=== PATIENT | female | born 1990 | race Asian ===

== ENCOUNTER 2016-09-14 23:59 | Outpatient (CLI) | payer MEDICAID ==
[2016-09-15 00:39] LABS: APPEARANCE,URINE CLEAR; BILIRUBIN,URINE NEGATIVE (NEGATIVE); GLUCOSE, URINE 50 mg/dL (NEGATIVE); KETONES,URINE NEGATIVE (NEGATIVE); LEUKOCYTE ESTERASE,URINE NEGATIVE (NEGATIVE); NITRITE,URINE NEGATIVE (NEGATIVE); PROTEIN,URINE NEGATIVE (NEGATIVE); URINE SPECIFIC GRAVITY 1.014; UROBILINOGEN,URINE NEGATIVE mg/dL (<2.0)
[2016-09-15 00:54] LABS: URINE BARBITURATES SCREEN NEGATIVE; URINE METHADONE SCREEN NEGATIVE; URINE OPIATES LOW NEGATIVE; URINE PHENCYCLIDINE SCREEN NEGATIVE
--- NOTE | 2016-09-15 00:54 | Non Stress Test Report ---
Non Stress Test Datetime Report Generated by CPN: 09/15/2016 00:54 DEMOGRAPHIC Test Number: 1 EGA NST: 39.2 INDICATION Indication for Study: Other Indication for Study (NST) Other: labor check MONITORING Monitor Explained: Monitor Explained; Test Explained; Patient Verbalized Understanding Time on Monitor: 09/15/2016 00:10 Time off Monitor: 09/15/2016 00:51 NST Duration: 41 NST INTERVENTIONS NST Interventions: PO Hydration; Other NST Interventions Other: popcicle Physician Notified NST: Dr Rodriguez BABY A: [id number] BABY A Movement : Present Contraction Frequency : occasional FHR Baseline : 130 Accelerations : 15X15 Decelerations : None Variability : Moderate 6-25bpm NST Review: Meets Criteria for Reactive NST NST Review and Verified By : Keya Poon RN NST Results: Reactive NST REPORT Report Trigger: Send Report
[2016-09-15 02:40] LABS: CHLAM PCR NOT DETECTED (NOT DETECT)
--- NOTE | 2016-09-15 04:45 | L&D Admission Assessment ---
LD ADM ASMT Datetime Report Generated by CPN: 09/15/2016 04:45 PATIENT ASSESSMENT Assessment Type: Triage (09/15/2016 00:19:Libia Duke) WEIGHT Weight (lb): 156 (09/15/2016 00:11:QS system process) Weight (kg): 70.9 (09/15/2016 00:11:QS system process) PAIN Pain Scale: 1 (09/15/2016 00:19:Libia Duke) Pain Presence: Intermittent (09/15/2016 00:19:Libia Duke) Pain Type: Cramping (09/15/2016 00:19:Libia Duke) Pain Location: Perineum (09/15/2016 00:19:Libia Duke) Pain Goal: 0 (09/15/2016 00:19:Libia Duke) CONTRACTIONS Frequency (min): occasional (09/15/2016 00:50:Libia Duke) Quality: Mild (09/15/2016 00:50:Libia Duke) Resting Tone [place]: Relaxed (09/15/2016 00:50:Libia Duke) VAGINAL EXAM Dilatation (cm): fingertip (09/15/2016 01:00:Libia Duke) Effacement (%): 50 (09/15/2016 01:00:Libia Duke) Station: -2 (09/15/2016 01:00:Libia Duke) NEURO Level of Consciousness: Fully Conscious (09/15/2016 00:19:Libia Duke) DTR's/Clonus: DTRs 2+; No Clonus (09/15/2016 00:19:Libia Duke) Headache: Denies (09/15/2016 00:19:Libia Duke) Dizziness: No (09/15/2016 00:19:Libia Duke) Blurred Vision: No (09/15/2016 00:19:Libia Duke) Extremity Numbness/Tingling : None (09/15/2016 00:19:Libia Duke) Extremity Movement: Full Range of Motion (09/15/2016 00:19:Libia Duke) CARDIOVASCULAR Heart Rhythm: Regular (09/15/2016 00:19:Libia Duke) Nailbeds: [place] (09/15/2016 00:19:Libia Duke) Capillary Refill: Less than 3 Seconds (09/15/2016 00:19:Libia Duke) Lower Extremities Edema: None (09/15/2016 00:19:Libia Duke) Lower Extremities Edema Degree: None (09/15/2016 00:19:Libia Duke) Upper Extremities Edema: None (09/15/2016 00:19:Libia Duke) Upper Extremities Edema Degree: None (09/15/2016 00:19:Libia Duke) Facial Edema: None (09/15/2016 00:19:Libia Duke) DVT RISK ASSESSMENT DVT Risk Age: Age less than 41 years (09/15/2016 00:19:Libia Duke) DVT Risk BMI: BMI<31 (09/15/2016 00:19:Libia Duke) DVT Risk Surgery: None Applicable (09/15/2016 00:19:Libia Duke) DVT Risk Other: Women Only- or (<1 month) (09/15/2016 00:19:Libia Duke) DVT Risk Total: 1 (09/15/2016 00:19:QS system process) DVT Risk Text: Low Risk (<10%) No specific measures, early ambulation (09/15/2016 00:19:QS system process) RESPIRATORY Respiratory Effort: Unlabored (09/15/2016 00:19:Libia Duke) Breath Sounds, Left: Clear and Equal (09/15/2016 00:19:Libia Duke) Breath Sounds, Right: Clear and Equal (09/15/2016 00:19:Libia Duke) Cough Productivity: None (09/15/2016 00:19:Libia Duke) GASTROINTESTINAL Nausea/Vomiting: Denies (09/15/2016 00:19:Libia Duke) Bowel Sounds: Normoactive (09/15/2016 00:19:Libia Duke) RUQ Epigastric Pain: Denies (09/15/2016 00:19:Libia Duke) Bowel Patterns: Soft, Formed Stool (09/15/2016 00:19:Libia Duke) Hemorrhoids: None (09/15/2016 00:19:Libia Duke) GENITOURINARY Vaginal Bleeding: Scant (09/15/2016 00:19:Libia Duke) Vaginal Discharge Amount: None (09/15/2016 00:19:Libia Duke) INTEGUMENTARY Skin Color: Normal for Race (09/15/2016 00:19:Libia Duke) Skin Temperature: Warm (09/15/2016 00:19:Libia Duke) Skin Moisture: Dry (09/15/2016 00:19:Libia Duke) KT SKIN ASSESSMENT Kt Scale Sensory Perception: No Impairment- Responds to verbal commands. Has no sensory deficit which would limit ability to feel or voice pain or discomfort (09/15/2016 00:19:Libia Duke) Kt Scale Moisture: Rarely Moist- Skin is usually dry. Linen only requires changing at routine intervals (09/15/2016 00:19:Libia Duke) Kt Scale Activity: Walks Frequently- Walks outside the room at least twice a day and inside room at least every 2 hours during the day. (09/15/2016 00:19:Libia Duke) Kt Scale Mobility: No Limitations- Makes major and frequent changes in position without assistance (09/15/2016 00:19:Libia Duke) Kt Scale Nutrition: Excellent- Eats most of every meal. Never refuses a meal. Usually eats a total of 4 or more servings of meat and dairy products. Occasionally eats between meals. Does not require supplementation (09/15/2016 00:19:Libianathan Duke) Kt Scale Friction and Shear: No Apparent Problem- Moves in bed and in chair independently and has sufficient muscle strength to lift up completely during move. Maintains good position in bed or chair at all times (09/15/2016 00:19:Libia Duke) Kt Scale Total: 23 (09/15/2016 00:19:QS system process) Kt Scale Risk: No Risk of Pressure Ulcer Noted at this Time (09/15/2016 00:19:QS system process) SUPPORT Family Support: Significant Other supportive, at bedside frequently; Family supportive (09/15/2016 00:19:Libia Duke) Emotional State: Calm/Relaxed (09/15/2016 00:19:Libia Duke) SAFETY Call Plaza Within Reach: Yes (09/15/2016 00:19:Libia Duke) Side Rails Up: Yes (09/15/2016 00:19:Libia Duke) Bed Wheels Locked: Yes (09/15/2016 00:19:Libia Duke) Arm Bands Present: Yes (09/15/2016 00:19:Libia Duke) Isolation: [place] (09/15/2016 00:19:Libia Duke) FALL SCREEN Fall Risk History of Falling: (0) No (09/15/2016 00:19:Libia Duke) Fall Risk Secondary Diagnosis: (0) No (09/15/2016 00:19:Libia Duke) Fall Risk Ambulatory Aid: (0) None/Bedrest/Wheelchair/Nurse Assist (09/15/2016 00:19:Libia Srikanth) Fall Risk IV Therapy: (0) No (09/15/2016 00:19:Libia Duke) Fall Risk Gait: (0) Normal/Bedrest/Immobile (09/15/2016 00:19:Libia Duke) Fall Risk Mental Status: (0) Oriented to Own Ability (09/15/2016 00:19:Libia Duke) Fall Risk Score: 0 (09/15/2016 00:19:QS system process) Fall Risk Score Definition: No Risk: No action required (09/15/2016 00:19:QS system process) RECENT TRAVEL/INFECTIOUS DISEASE Recent Exp Communicable Disease: No (09/15/2016 00:19:Libia Duke) Cough or Fever: No (09/15/2016 00:19:Libia Duke) Foreign Travel Past 10 Days: No (09/15/2016 00:19:Libia Duke) Open Wounds or Sores: No (09/15/2016 00:19:Libia Duke) Prior Antibiotic Resistance Tx: No (09/15/2016 00:19:Libia Duke) BABY A FHR Baseline Rate (bpm) Baby A: 130 (09/15/2016 00:50:Libia Duke) Variability Baby A: Moderate 6-25 bpm (09/15/2016 00:50:Libia Duke) Accelerations Baby A: 15X15 (09/15/2016 00:50:Libia Duke) Decelerations Baby A: None (09/15/2016 00:50:Libia Duke)
--- NOTE | 2016-09-15 04:45 | L&D Flow Sheet ---
LD Flowsheet Datetime Report Generated by CPN: 09/15/2016 04:45 Datetime: 09/15/2016 01:14 Patient Care Comments: patient ambulated off the unit in stbale condition. (Libia Duke) Datetime: 09/15/2016 01:10 Teaching Comments: discharge instructions reviewed and handout given. The patient verbalized understanding of the instructions and no further querstions at this time. (Libia Duke) Datetime: 09/15/2016 01:09 Communication Provider Notified (Name): Dr Rodriguez notified of the patient changes with some mild spotting, occasioanl contractions that the patient denies feeling. Okay to discharge home and follow up in the office this week. (Libia Duke) Datetime: 09/15/2016 01:00 Vaginal Exam Dilatation (cm): fingertip (Libia Duke) Effacement (%): 50 (Libia Duke) Station: -2 (Libia Duke) Exam by: David Duke Rn (Libia Duke) Vaginal Exam Comments: there was some minor spotting on the pad but no blood on the glove after cervical check. (Libia Duke) Datetime: 09/15/2016 00:50 Respirations: 18 (Libia Duke) Uterine Activity Monitor Mode: External; Palpation (Libia Duke) Monitor Interventions for UA: [place] Adjusted (Libia Duke) Frequency (min): occasional (Libia Duke) Quality: Mild (Libia Duke) Resting Tone (Palpate): Relaxed (Libia Duke) Assessment A Monitor Mode: External US (Libia Duke) Monitor Interventions for FHR: Ultrasound Adjusted (Libia Duke) FHR Baseline Rate : 130 (Libia Duke) Variability: Moderate 6-25 bpm (Libia Duke) Accelerations: 15X15 (Libia Duke) Decelerations: None (Libia Duke) Patient Care Patient Position/Activity: Left Lateral (Libia Duke) Datetime: 09/15/2016 00:46 Vital Signs NBP Sys/Nery/Mean (mmHg): 102 (QS system process) : 64 (QS system process) : 77 (QS system process) Pulse: 80 (QS system process) Datetime: 09/15/2016 00:38 Communication Provider Notified (Name): Dr Rodriguez notified of the patient 39.2 presents with vaginal bleeding. The baby is reactive on the monitor with an occasional contraction that the patient denies feeling them. orders recieved to discharge the patient home if no bleeding noted and no more problems (Libia Duke) Datetime: 09/15/2016 00:32 I/O Interventions: Popsicle; Clear Liquids Given (Libia Duke) Datetime: 09/15/2016 00:28 Patient Care Comments: pad placed in vaginal area to watch for bleeding (Libia Duke) Datetime: 09/15/2016 00:19 Pain Pain Scale: 1 (Libia Duke) Pain Presence: Intermittent (Libia Duke) Pain Type: Cramping (Libia Duke) Pain Location: Perineum (Libia Duke) Pain Goal: 0 (Libia Duke) Vaginal Bleeding: Scant (Libia Duke) Maternal Assessment Level of Consciousness: Fully Conscious (Libia Duke) DTR's/Clonus: DTRs 2+; No Clonus (Libia Duke) Headache: Denies (Libia Duke) Breath Sounds, Left: Clear and Equal (Libia Duke) Breath Sounds, Right: Clear and Equal (Libia Duke) Nausea/Vomiting: Denies (Libia Duke) RUQ Epigastric Pain: Denies (Libia Duke) Patient Care Patient Position/Activity: Left Lateral (Libia Duke) Teaching Instructional Method: Verbal (Libia Duke) Plan of Care: Plan of Care Discussed (Libia Duke) Unit Routine: [place] to Room; Call Plaza; Bed; Monitoring (Libia Duke) Datetime: 09/15/2016 00:16 Vital Signs NBP Sys/Nery/Mean (mmHg): 108 (QS system process) : 66 (QS system process) : 79 (QS system process) Pulse: 93 (QS system process) Datetime: 09/15/2016 00:06 Patient Care Comments: patient to the unit for labor check (Libia Duke)
--- NOTE | 2016-09-15 04:45 | L&D General Admission ---
General Admit Datetime Report Generated by CPN: 09/15/2016 04:45 INFORMATION Patient Age: 26 (09/14/2016 23:59:QS system process) EDC: 09/20/2016 00:00 (09/15/2016 00:04:Libia Duke) : 1 (09/15/2016 00:04:Libia Duke) Para: 0 (09/15/2016 00:04:Libia Duke) CARE Primary Automatic Packer Operator: [facility] (09/15/2016 00:04:Libia Duke) Height (in): 65 (09/15/2016 00:11:QS system process) ALLERGIES Medication Allergy: No (09/15/2016 00:04:Libia Duke) Medication Allergies: No Known Drug Allergies (09/15/2016) (09/15/2016 00:11:QS system process) Latex Allergy: No Latex Allergies (09/15/2016 00:04:Libia Duke) Food Allergies: none (09/15/2016 00:04:Libia Duke) Environmental Allergies: none (09/15/2016 00:04:Libia Duke) COMMUNICATION Primary Language: Bengali (09/15/2016 00:04:Libia Duke) Medical Tx Preferred Language: Somali (09/15/2016 00:04:Libia Duke) DEMOGRAPHICS Address: [address] [place] [id number] (09/14/2016 23:59:QS system process) Zipcode: [address] (09/14/2016 23:59:QS system process) Home (09/14/2016 23:59:QS system process) SSN: [id number] (09/14/2016 23:59:QS system process) Next of Kin Name: TROY RAMON (09/14/2016 23:59:QS system process) Next of Kin (09/14/2016 23:59:QS system process) Next of Kin Relationship: SPO (09/14/2016 23:59:QS system process) Date of : 1990 (09/14/2016 23:59:QS system process) Marital Status: (09/14/2016 23:59:QS system process) Sex: Female (09/14/2016 23:59:QS system process) Race: (09/14/2016 23:59:QS system process) Ethnicity: Non- or (09/14/2016 23:59:QS system process) Tenriism: None (09/14/2016 23:59:QS system process) DRUG AND ALCOHOL USE Alcohol: No (09/15/2016 00:04:Libia Srikanth) Cigarettes: Never Smoker. [id number] (09/15/2016 00:04:Libia Duke) Marijuana: No (09/15/2016 00:04:Libia Duke) Cocaine: No (09/15/2016 00:04:Libia Duke) Other Illicit Drugs: No (09/15/2016 00:04:Libia Duke) VACCINE HISTORY Influenza Vaccine: No (09/15/2016 00:04:Libia Duke) Pneumococcal Vaccine: No (09/15/2016 00:04:Libia Duke) Tetanus Vaccine: No (09/15/2016 00:04:Libia Duke) Tdap Date: 2016 (09/15/2016 00:04:Libia Duke) Hepatitis B Vaccine: No (09/15/2016 00:04:Libia Duke) Qa Manager: [facility] (09/15/2016 00:04:Libia Duke) Feeding Preference: Both (09/15/2016 00:04:Libia Duke) Circumcision: Yes (09/15/2016 00:04:Libia Duke) Classes Attended: Yes (09/15/2016 00:04:Libia Duke) Tubal Ligation: No (09/15/2016 00:04:Libia Duke) Tubal Authorization Signed: N/A (09/15/2016 00:04:Libia Duke) Consent: N/A (09/15/2016 00:04:Libia Duke) Consent Signed: N/A (09/15/2016 00:04:Libia Duke) Pain Management Plans: Natural; Epidural (09/15/2016 00:04:Libia Duke) Plans for Labor and Delivery: None (09/15/2016 00:04:Libia Duke) Support Person: Troy- (09/15/2016 00:04:Libia Duke) Support Person Relationship: (09/15/2016 00:04:Libia Duke) Cultural/Spritual Practice: N/A (09/15/2016 00:04:Libia Duke) Spir/Cult Dietary Needs: N/A (09/15/2016 00:04:Libia Duke) LIVING SITUATION/DISCHARGE PLAN Living Arrangements: House (09/15/2016 00:04:Libia Duke) Adequate Access to:: Electric; Heat; Refrigeration; Plumbing/Running water; Phone; Transportation (09/15/2016 00:04:Libia Duke) WIC Program: Yes (09/15/2016 00:04:Libia Duke) Discharge Hebrew Cantor Person: ever (09/15/2016 00:04:Libia Dkue) Person to Help after Discharge: ever (09/15/2016 00:04:Libia Duke) Currently Using Commun Resources: Yes (09/15/2016 00:04:Libia Duke) Specify Current Resource Used: medicaid (09/15/2016 00:04:Libia Duke) OB/PREVIOUS HISTORY Previous Procedures: None (09/15/2016 00:04:Libia Duke) Current Procedures: Ultrasound; NST (09/15/2016 00:04:Libia Duke) History of Previous : No (09/15/2016 00:04:Libia Duke) History of Gestational Diabetes: No (09/15/2016 00:04:Libia Duke) History of PIH: No (09/15/2016 00:04:Libia Duke) History of Incompetent Cervix: No (09/15/2016 00:04:Libia Duke) History of Placenta Previa/Abrup: No (09/15/2016 00:04:Libia Duke) History of Macrosomia: No (09/15/2016 00:04:Libia Duke) History of IUGR: No (09/15/2016 00:04:Libia Duke) History of Hemorrhage: No (09/15/2016 00:04:Libia Duke) History of Loss/Stillborn: No (09/15/2016 00:04:Libia Duke) History of : No (09/15/2016 00:04:Libia Duke) History of D (Rh) Sensitization: No (09/15/2016 00:04:Libia Duke) History Recurrent Loss/Stillborn: No (09/15/2016 00:04:Libia Duke) History Depression/PP Depression: No (09/15/2016 00:04:Libia Duke) History of Uterine Anomaly/ALISE: No (09/15/2016 00:04:Libia Duke) History of Infertility: No (09/15/2016 00:04:Libia Duke) History of ART Treatment: No (09/15/2016 00:04:Libia Duke) History of ALISE: No (09/15/2016 00:04:Libia Duke) Comments Obstetrical History: G1-current (09/15/2016 00:04:Libia Duke) MEDICAL HISTORY Med Hx Diabetes: No (09/15/2016 00:04:Libia Duke) Med Hx Hypertension: No (09/15/2016 00:04:Libia Duke) Med Hx Heart Disease: No (09/15/2016 00:04:Libia Duke) Med Hx Autoimmune Disorder: No (09/15/2016 00:04:Libia Duke) Med Hx Kidney Disease/UTI: No (09/15/2016 00:04:Libia Duke) Med Hx Neurologic/Epilepsy: No (09/15/2016 00:04:Libia Duke) Med Hx Psychiatric Disorders: No (09/15/2016 00:04:Libia Duke) Med Hx Hepatitis/Liver Disease: No (09/15/2016 00:04:Libia Duke) Med Hx Varicosities/Phlebitis: No (09/15/2016 00:04:Libia Duke) Med Hx Thyroid Dysfunction: No (09/15/2016 00:04:Libia Duke) Med Hx Trauma/Violence: No (09/15/2016 00:04:Libia Duke) Med Hx Blood Transfusion: No (09/15/2016 00:04:Libia Duke) Med Hx Pulmonary (Asthma,TB): No (09/15/2016 00:04:Libia Duke) Med Hx Breast: No (09/15/2016 00:04:Libia Duke) Med Hx TRANSPORT MANAGER Surgery: No (09/15/2016 00:04:Libia Duke) Med Hx Hospitalization/Surgery: No (09/15/2016 00:04:Libia Duke) Med Hx Anesthetic Complications: No (09/15/2016 00:04:Libia Duke) Med Hx Abnormal Pap Smear: No (09/15/2016 00:04:Libia Duke) Other Medical Diseases: No (09/15/2016 00:04:Libia Duke) Med Hx Significant Family Hx: No (09/15/2016 00:04:Libia Duke) INFECTIOUS HISTORY Inf Hx Gonorrhea: No (09/15/2016 00:04:Libia Duke) Inf Hx Chlamydia: No (09/15/2016 00:04:Libia Duke) Inf Hx Syphilis: No (09/15/2016 00:04:Libia Duke) Inf Hx HIV/AIDS: No (09/15/2016 00:04:Libia Duke) Inf Hx Human Papilloma Virus: No (09/15/2016 00:04:Libia Duke) Inf Hx Pt/Partner Genital Herpes: No (09/15/2016 00:04:Libia Duke) Inf Hx Tuberculosis/Exposure: No (09/15/2016 00:04:Libia Duke) Inf Hx Hepatitis B,C: No (09/15/2016 00:04:Libia Duke) Inf Hx Rash or Viral Illness: No (09/15/2016 00:04:Libia Duke) GENETIC HISTORY Gen Hx Age >=35 at FINN: No (09/15/2016 00:04:Lbiia Duke) Gen Hx Thalassemia: No (09/15/2016 00:04:Libia Duke) Gen Hx Congenital Heart Defect: No (09/15/2016 00:04:Libia Duke) Gen Hx Neural Tube Defect: No (09/15/2016 00:04:Libia Duke) Gen Hx Down's Syndrome: No (09/15/2016 00:04:Libia Duke) Gen Hx Kenji-Sachs: No (09/15/2016 00:04:Libia Duke) Gen Hx Yumiko: No (09/15/2016 00:04:Libia Duke) Gen Hx Familial Dysautonomia: No (09/15/2016 00:04:Libia Duke) Gen Hx Sickle Cell Disease/Trait: No (09/15/2016 00:04:Libia Duke) Gen Hx Hemophilia/Blood Disorder: No (09/15/2016 00:04:Libia Duke) Gen Hx Muscular Dystrophy: No (09/15/2016 00:04:Libia Duke) Gen Hx Cystic Fibrosis: No (09/15/2016 00:04:Libia Duke) Gen Hx [place] Chorea: No (09/15/2016 00:04:Libia Duke) Gen Hx Mental Retardation/Autism: No (09/15/2016 00:04:Libia Duke) Gen Hx Tested for Fragile X: No (09/15/2016 00:04:Libia Duke) Gen Hx Other Inher/Chromosomal: No (09/15/2016 00:04:Libia Duke) Gen Hx Maternal Metabolic DO: No (09/15/2016 00:04:Libia Duke) Gen Hx Pt Father or FOB Defect: No (09/15/2016 00:04:Libia Duke) Gen Hx Other Genetic History: No (09/15/2016 00:04:Libia Duke) Gen Hx Drugs/Meds since LMP: No (09/15/2016 00:04:Libia Duke)
--- NOTE | 2016-09-15 04:45 | L&D Discharge Summary ---
OB Discharge Summary Datetime Report Generated by CPN: 09/15/2016 04:45 DISCHARGE DIAGNOSIS Diagnosis/Symptoms: False Labor Parity: 0 DIET/ACTIVITY/RESTRICTIONS Diet: Regular Activity: Normal Activity TEACHING/INSTRUCTIONS/REFERRALS Instructions Given To: patient Instructions Understood: Patient Verbalized Understanding; Support Person Verbalized Understanding Referrals: None Educational Materials- Other: labor signs DISCHARGE INFORMATION Discharge Date/Time: 09/15/2016 00:52 Discharged To: Home Discharge Provider Name: Dr Rodriguez Accompanied By: family Discharge Method: Ambulatory Condition: Stable FOLLOW UP INFORMATION Follow Up With: [facility] Follow Up On: 1-2 Days Follow Up Phone Number: [facility] -
--- NOTE | 2016-09-15 04:45 | L&D Current Admission ---
Current Admit Datetime Report Generated by CPN: 09/15/2016 04:45 ADMISSION INFORMATION Chief Complaint: Vaginal Bleeding (09/15/2016 00:19:Libia Duke)
--- NOTE | 2016-09-15 04:45 | Antepartum Discharge Summary ---
Antepartum DC Datetime Report Generated by CPN: 09/15/2016 04:45 DIET/ACTIVITY/RESTRICTIONS Diet: Regular (09/15/2016 00:51:Libia Duke) Activity: Normal Activity (09/15/2016 00:51:Libia Duke) TEACHING/INSTRUCTIONS/REFERRALS Instructions Given To: patient (09/15/2016 00:51:Libia Duke) Instructions Understood: Patient Verbalized Understanding; Support Person Verbalized Understanding (09/15/2016 00:51:Libia Duke) Referrals: None (09/15/2016 00:51:Libia Duke) Educational Materials- Other: labor signs (09/15/2016 00:51:Libia Duke) DISCHARGE INFORMATION Discharge Date/Time: 09/15/2016 00:52 (09/15/2016 00:51:Libia Duke) Discharged To: Home (09/15/2016 00:51:Libia Duke) Discharge Provider Name: Dr Rodriguez (09/15/2016 00:51:Libia Duke) Accompanied By: family (09/15/2016 00:51:Libia Duke) Discharge Method: Ambulatory (09/15/2016 00:51:Libia Duke) Condition: Stable (09/15/2016 00:51:Libia Duke) FOLLOW UP INFORMATION Follow Up With: [facility] (09/15/2016 00:51:Libia Duke) Follow Up On: 1-2 Days (09/15/2016 00:51:Libia Duke) Follow Up Phone Number: [facility] - (09/15/2016 00:51:Libia Duke)
== END 2016-09-15 01:14 | disposition home or self-care (01) ==
LOC: LC 23:59
PROVIDERS: ATTEND Obstetrics & Gynecology
PROC: 4A1HXCZ Monitoring of Products of Conception, Cardiac Rate, External Approach (ICD-10-PCS; principal; 2016-09-14)
DX: O47.1 False labor at or after 37 completed weeks of gestation (principal); Z3A.39 39 weeks gestation of pregnancy
CPT/HCPCS: 59025; 80307; 81005; 87491; 87591

== ENCOUNTER 2016-09-18 17:05 | Inpatient (IN) | payer MEDICAID ==
[2016-09-18 17:53] LABS: ABSOLUTE LYMPHOCYTES (AUTO) 1.2 10^3/uL (0.5-4.7); ABSOLUTE MONOCYTES (AUTO) 0.6 10^3/uL (0.1-1.4); ABSOLUTE NEUT (AUTO) 11.1 10^3/uL (1.7-8.2); BASOPHILS % (AUTO) 0.1 % (0-2); EOSINOPHILS % (AUTO) 0.1 % (0-6); HEMATOCRIT 39.1 % (36.0-47.0); HEMOGLOBIN 13.5 g/dL (12.0-15.5); HGB HCT DIFFERENCE 1.4; LYMPHOCYTES % (AUTO) 9.6 % (13-45); MEAN CORPUSCULAR HEMOGLOBIN 30.5 pg (27.0-33.4); MEAN CORPUSCULAR HGB CONC 34.4 g/dL (32.0-36.0); MEAN CORPUSCULAR VOLUME 89 fl (80-97); MONOCYTES % (AUTO) 4.7 % (3-13); RED BLOOD COUNT 4.41 10^6/uL (3.72-5.28); RED CELL DISTRIBUTION WIDTH 13.9 % (11.5-14.0); SEGMENTED NEUTROPHILS % (AUTO) 85.5 % (42-78)
[2016-09-18 17:55] LABS: APPEARANCE,URINE CLOUDY; BILIRUBIN,URINE NEGATIVE (NEGATIVE); GLUCOSE, URINE NEGATIVE (NEGATIVE); KETONES,URINE 80 mg/dL (NEGATIVE); LEUKOCYTE ESTERASE,URINE MODERATE (NEGATIVE); NITRITE,URINE NEGATIVE (NEGATIVE); PROTEIN,URINE 100 mg/dL (NEGATIVE); UROBILINOGEN,URINE NEGATIVE mg/dL (<2.0)
--- NOTE | 2016-09-18 18:00 | L&D Flow Sheet ---
LD Flowsheet Datetime Report Generated by CPN: 09/18/2016 18:00 Datetime: 09/18/2016 17:36 NBP Sys/Nery/Mean (mmHg): 115 (QS system process) : 67 (QS system process) : 84 (QS system process) Pulse: 77 (QS system process) LaborFlag: OB Triage (QS system process)
[2016-09-18 18:26] LABS: URINE BARBITURATES SCREEN NEGATIVE; URINE METHADONE SCREEN NEGATIVE; URINE OPIATES LOW NEGATIVE; URINE PHENCYCLIDINE SCREEN NEGATIVE
[2016-09-18] MEDS ORDERED: FENTANYL/BUPIVACAINE/NS/PF 0 MCG/0 ML RTUINJ EPI ONE (19:08)
[2016-09-18] MEDS ORDERED: EPHEDRINE SULFATE INJ 50 MG/1 ML AMPULE ONE (19:08)
[2016-09-18] MEDS ORDERED: LIDOCAINE 1% INJ-PF (10 MG/ML) 30 ML SDV ONE (19:09)
[2016-09-18] MEDS ORDERED: MISOPROSTOL 0.2 MG TABLET ONE (19:09)
[2016-09-18] MEDS ORDERED: OXYTOCIN/NORMAL SALINE 20 UNIT/1,000 ML RTUINJ ONE (19:09)
[2016-09-18] MEDS ORDERED: BUPIVACAINE HCL 0.25 % INJ/PF (2.5 MG/1 ML) 30 ML VIAL ONE (19:09)
--- NOTE | 2016-09-18 20:00 | L&D Flow Sheet ---
LD Flowsheet Datetime Report Generated by CPN: 09/18/2016 20:00 Datetime: 09/18/2016 19:36 NBP Sys/Nery/Mean (mmHg): 132 (QS system process) : 100 (QS system process) : 112 (QS system process) Pulse: 110 (QS system process) LaborFlag: Labor (QS system process) Datetime: 09/18/2016 19:30 Stage of : Labor (Yuan Claire RN) Respirations: 22 (Yuan Claire RN) Monitor Mode: External; Palpation (Yuan Claire RN) Monitor Mode: External (Yuan Claire RN) Frequency (min): 1.5-2.5 (Yuan Claire RN) Quality: Moderate to Strong (Yuan Claire RN) Duration (sec): 55-70 (Yuan Claire RN) Resting Tone (Palpate): Relaxed (Yuan Claire RN) Monitor Mode: External US (Yuan Claire RN) FHR Baseline Rate : 130 (Yuan Claire RN) FHR Baseline Changes: No Baseline Change (Yuan Claire RN) Variability: Moderate 6-25 bpm (Yuan Claire RN) Accelerations: 15X15 (Yuan Claire RN) Decelerations: None (Yuan Claire RN) Comfort Measures: Coaching (Yuan Claire RN) Pushing: Coached on Pushing; Urge to Push (Yuan Claire RN) Pushing Position: Pushing with Contractions; Pushing Lithotomy (Yuan Claire RN) Pushing Progress: Descent with Pushing (Yuan Claire RN) Communication: RN at Bedside; RN Reviewed Strip; Provider at Bedside (Yuan Claire RN) LaborFlag: Labor (QS system process) Datetime: 09/18/2016 19:27 Pushing: Coached on Pushing; Urge to Push (Yuan Claire RN) Pushing Position: Pushing with Contractions; Pushing Lithotomy (Yuan Claire RN) Pushing Progress: Ineffective Pushing (Yuan Claire RN) Datetime: 09/18/2016 19:24 Stage of : Labor (Yuan Claire RN) Communication: RN at Bedside; RN Reviewed Strip; Provider at Bedside (Yuan Claire RN) Communication Comments: DR RODRIGUEZ @ BS (Yuan Claire RN) Datetime: 09/18/2016 19:15 Monitor Mode: External; Palpation (Marilyn Camp, RNC) Monitor Interventions for UA: [place] Adjusted (Marilyn Camp, RNC) Frequency (min): 1-3 (Marilyn Camp, RNC) Quality: Moderate to Strong (Marilyn Camp, RNC) Duration (sec): 60-80 (Marilyn Camp, RNC) Duration Criteria: Less than Two 120 Second Contractions (Marilyn Camp, RNC) Pattern: Normal: <= 5 Contractions in 10 Minutes (Marilyn Camp, RNC) Resting Tone (Palpate): Relaxed (Marilyn Camp, RNC) Monitor Mode: External US; Auscultation (Marilyn Camp, RNC) Monitor Interventions for FHR: Ultrasound Adjusted (Marilyn Camp, RNC) FHR Baseline Rate : 135 (Marilyn Camp, RNC) FHR Baseline Changes: No Baseline Change (Marilyn Camp, RNC) Variability: Moderate 6-25 bpm (Marilyn Camp, RNC) Accelerations: 15X15 (Marilyn Camp, RNC) Decelerations: None (Marilyn Camp, RNC) Datetime: 09/18/2016 19:10 Communication Comments: Dr Rodriguez called notified of pt complete +2, please come for delivery now. States she is on the way. (Zeb Jc, RN) Datetime: 09/18/2016 19:03 Dilatation (cm): 10.0 (Marilyn Camp, RNC) Effacement (%): 100 (Marilyn Camp, RNC) Station: 2 (Marilyn Camp, RNC) Exam by: Evelyn Lau (Marilyn Camp, RNC) Datetime: 09/18/2016 19:00 Monitor Mode: External (Zeb Jc, RN) Frequency (min): 2-3 (Zeb Jc, RN) Quality: Moderate to Strong (Marilyn Camp, RNC) Duration (sec): 60-80 (Marilyn Camp, RNC) Duration Criteria: Less than Two 120 Second Contractions (Marilyn Camp, RNC) Pattern: Normal: <= 5 Contractions in 10 Minutes (Marilyn Camp, RNC) Resting Tone (Palpate): Relaxed (Marilyn Camp, RNC) Monitor Mode: External US (Zeb Jc, RN) FHR Baseline Rate : 140 (Zeb Jc, RN) Variability: Moderate 6-25 bpm (Zeb Jc, RN) Accelerations: 15X15 (Zeb Jc, RN) Decelerations: None (Zeb Jc, RN) Communication: RN Reviewed Strip (Zeb Jc, RN) Datetime: 09/18/2016 18:45 Monitor Mode: External; Palpation (Marilyn Camp, RNC) Frequency (min): 1-3 (Marilyn Camp, RNC) Quality: Moderate to Strong (Marilyn Camp, RNC) Duration (sec): 60-80 (Marilyn Camp, RNC) Duration Criteria: Less than Two 120 Second Contractions (Marilyn Camp, RNC) Pattern: Normal: <= 5 Contractions in 10 Minutes (Marilyn Camp, RNC) Resting Tone (Palpate): Relaxed (Marilyn Camp, RNC) Monitor Mode: External US; Auscultation (Marilyn Camp, RNC) FHR Baseline Rate : 140 (Marilyn Camp, RNC) FHR Baseline Changes: No Baseline Change (Marilyn Camp, RNC) Variability: Moderate 6-25 bpm (Marilyn Camp, RNC) Accelerations: 15X15 (Marilyn Camp, RNC) Decelerations: None (Marilyn Camp, RNC) Datetime: 09/18/2016 18:36 NBP Sys/Nery/Mean (mmHg): 125 (QS system process) : 68 (QS system process) : 91 (QS system process) Pulse: 90 (QS system process) Respirations: 16 (Marilyn Camp, RNC) LaborFlag: Labor (QS system process) Datetime: 09/18/2016 18:30 Stage of : Labor (Yuan Claire RN) Respirations: 20 (Yuan Claire RN) Monitor Mode: External (Yuan Claire RN) Frequency (min): 2-4 (Yuan Claire RN) Quality: Moderate (Yuan Claire RN) Duration (sec): 55-70 (Yuan Claire RN) Resting Tone (Palpate): Relaxed (Yuan Claire RN) Monitor Mode: External US (Yuan Claire RN) FHR Baseline Rate : 150 (Yuan Claire RN) FHR Baseline Changes: No Baseline Change (Yuan Claire RN) Variability: Moderate 6-25 bpm (Yuan Claire RN) Accelerations: 15X15 (Yuan Claire RN) Decelerations: None (Yuan Claire RN) Pain Scale: 5 (Yuan Claire RN) Pain Presence: Intermittent (Yuan Claire RN) Pain Type: Contraction (Yuan Claire RN) Pain Location: Abdomen (Yuan Claire RN) Pain Relief Measures: Comfort Measures (Yuan Claire RN) Pain Coping: Breathing Through Contractions (Yuan Claire RN) Patient Position/Activity: Left Lateral; Low Fowlers (Yuan Claire RN) Comfort Measures: Breathing/Relaxation; Family Support (Yuan Claire RN) Communication: RN at Bedside; RN Reviewed Strip (Yuan Claire RN) LaborFlag: Labor (QS system process) Datetime: 09/18/2016 18:15 Monitor Mode: External; Palpation (NAGA Lawrence) Monitor Interventions for UA: [place] Adjusted (Marilyn Haji, RNC) Frequency (min): 1-4 (Marilyn Haji, RNC) Quality: Moderate to Strong (Marilyn Haji RNC) Duration (sec): 40-60 (Marilyn Haji RNC) Duration Criteria: Less than Two 120 Second Contractions (Marilyn Camp, RNC) Pattern: Normal: <= 5 Contractions in 10 Minutes (Marilyn Camp, RNC) Resting Tone (Palpate): Relaxed (Marilyn Camp, RNC) Monitor Mode: External US; Auscultation (Marilyn Camp, RNC) FHR Baseline Rate : 145 (Marilyn Camp, RNC) FHR Baseline Changes: No Baseline Change (Marilyn Camp, RNC) Variability: Moderate 6-25 bpm (Marilyn Camp, RNC) Accelerations: Prolonged (Marilyn Camp, RNC) Decelerations: None (Marilyn Camp, RNC) Datetime: 09/18/2016 18:06 NBP Sys/Nery/Mean (mmHg): 114 (QS system process) : 68 (QS system process) : 85 (QS system process) Pulse: 79 (QS system process) LaborFlag: Labor (QS system process) Datetime: 09/18/2016 18:00 Stage of : Labor (Yuan Claire RN) Respirations: 20 (Yuan Claire RN) Monitor Mode: External (Yuan Claire RN) Frequency (min): 2-4 (Yuan Claire RN) Quality: Moderate (Yuan Claire RN) Duration (sec): 55-70 (Yuan Claire RN) Resting Tone (Palpate): Relaxed (Yuan Claire RN) Monitor Mode: External US (Yuan Claire RN) FHR Baseline Rate : 145 (Yuan Claire RN) FHR Baseline Changes: No Baseline Change (Yuan Claire RN) Variability: Moderate 6-25 bpm (Yuan Claire RN) Accelerations: 15X15 (Yuan Claire RN) Decelerations: Variable (Yuan Claire RN) Decelerations: None (Yuan Claire RN) Pain Relief Measures: Comfort Measures (Yuan Claire RN) Pain Coping: Requesting Pain Medication or Epidural (Yuan Claire RN) Pain Coping: Breathing Through Contractions (Yuan Claire RN) Vaginal Bleeding: Small (Yuan Claire RN) IV/Blood Work: IV Started; IV Bolus Started; Labs Drawn (Yuan Claire RN) Patient Position/Activity: Left Lateral; Low Fowlers (Yuan Claire RN) Comfort Measures: Breathing/Relaxation; Coaching; Family Support (Yuan Claire RN) Communication: RN at Bedside; RN Reviewed Strip (Yuan Claire RN) LaborFlag: Labor (QS system process)
--- NOTE | 2016-09-18 22:00 | L&D Flow Sheet ---
LD Flowsheet Datetime Report Generated by CPN: 09/18/2016 22:00 Datetime: 09/18/2016 21:45 Stage of : Recovery (Peggy Field, RN) Datetime: 09/18/2016 21:36 NBP Sys/Nery/Mean (mmHg): 105 (QS system process) : 56 (QS system process) : 72 (QS system process) Pulse: 90 (QS system process) Datetime: 09/18/2016 21:30 Stage of : Recovery (Peggy Field, RN) Datetime: 09/18/2016 21:15 Stage of : Recovery (Peggy Field, RN) Datetime: 09/18/2016 21:06 NBP Sys/Nery/Mean (mmHg): 107 (QS system process) : 66 (QS system process) : 79 (QS system process) Pulse: 96 (QS system process) Datetime: 09/18/2016 21:00 Stage of : Recovery ([facility]) Pain Scale: 2 ([facility]) Pain Presence: Constant ([facility]) Pain Type: Burning ([facility]) Pain Location: Perineum ([facility]) Pain Goal: 0 ([facility]) Pain Relief Measures: Comfort Measures ([facility]) Datetime: 09/18/2016 20:45 Stage of : Recovery ([facility]) Temperature (F): 98.0 ([facility]) Temperature (C): 36.7 (QS system process) Temperature Route: Oral ([facility]) Datetime: 09/18/2016 20:36 NBP Sys/Nery/Mean (mmHg): 108 (QS system process) : 56 (QS system process) : 70 (QS system process) Pulse: 100 (QS system process) LaborFlag: Labor (QS system process) Datetime: 09/18/2016 20:29 Pulse: 124 (QS system process) SpO2 (%): 97 (QS system process) LaborFlag: Labor (QS system process) Datetime: 09/18/2016 20:23 Pulse: 134 (QS system process) SpO2 (%): 100 (QS system process) LaborFlag: Labor (QS system process) Datetime: 09/18/2016 20:15 Monitor Mode: External; Palpation (Peggy Field, RN) Frequency (min): 2-2.5 (Peggy Field, RN) Quality: Moderate to Strong (Peggy Field, RN) Duration (sec): 50-90 (Peggy Field, RN) Resting Tone (Palpate): Relaxed (Peggy Field, RN) Monitor Mode: External US (Peggy Field, RN) FHR Baseline Rate : 125 (Peggy Field, RN) Variability: Moderate 6-25 bpm (Peggy Field, RN) Accelerations: None (Peggy Field, RN) Decelerations: Variable (Peggy Field, RN) Datetime: 09/18/2016 20:07 NBP Sys/Nery/Mean (mmHg): 107 (QS system process) : 91 (QS system process) : 96 (QS system process) Pulse: 136 (QS system process) LaborFlag: Labor (QS system process) Datetime: 09/18/2016 20:00 Monitor Mode: External; Palpation (Peggy Petersen RN) Frequency (min): 1.5-2 (Peggy Petersen RN) Quality: Moderate to Strong (Peggy Petersen RN) Duration (sec): 50-80 (Peggy Petersen RN) Resting Tone (Palpate): Relaxed (Peggy Petersen RN) Monitor Mode: External US (Peggy Petersen RN) FHR Baseline Rate : 125 (Peggy Petersen RN) Variability: Moderate 6-25 bpm (Peggy Petersen RN) Accelerations: 10X10 (Peggy Petersen RN) Decelerations: Variable (Peggy Petersen RN)
[2016-09-18] MEDS ORDERED: BENZOCAINE/MENTHOL AEROSOL SPRAY 56 ML TOP PRN (22:44)
[2016-09-18] MEDS ORDERED: MEASLES,MUMPS&RUBELLA VACC/PF 0.5 ML VIAL SUBCUT PRN (22:44)
[2016-09-18] MEDS ORDERED: ACETAMINOPHEN WITH CODEINE #3 TABLET PO PRN ×2 (22:44)
[2016-09-18] MEDS ORDERED: DIPH/PERTUSS(ACELL)/TETANUS VAC/PF 0.5 ML SYR (>=10YO) IM PRN (22:44)
[2016-09-18] MEDS ORDERED: ZOLPIDEM TARTRATE 5 MG TABLET PO PRN (22:44)
[2016-09-18] MEDS ORDERED: OXYTOCIN/NORMAL SALINE 1,000 ML IV PRN (22:44)
[2016-09-18] MEDS ORDERED: DIBUCAINE 1% OINTMENT 28 GM TP PRN (22:44)
--- NOTE | 2016-09-18 22:48 | Delivery Summary ---
Del Sum A-C Datetime Report Generated by CPN: 09/18/2016 22:47 ADMISSION DATA Chief Complaint: Uterine Contractions; Suspected Ruptured Membranes Indication for Induction: Not Applicable Admission Impression: Term, Intrauterine ; Active Labor; Ruptured Membranes Admit Provider Comments: SROM 1500 today clear, states active fetus, denies vag bleeding hx + chlamydia on 08/27->tx, awaiting [facility] P[facility] in [place] and [facility], transfer at 28w Varicella vaccine exposure in early 1st trimester Pt speaks samoan/mandarin, some british [place] islander GBS negative See hx for complete hx NKDA DELIVERY PERSONNEL Delivery Doctor:: Dori Rodriguez MD Labor and Delivery Nurse:: Peggy Petersen RNmath and physics instructor Nurse:: Yuan Claire RN Home Therapy Clinician/ASHER: Raquel Rockwell CNA Additional Personnel: : Shelby Cortes, RN MATERNAL INFORMATION Delivery Anesthesia: Local Medications After Delivery: Pitocin Drip 20 Units/1000ml NSS Maternal Complications: None Provider Comments: over lac as above. live male infant ap 9/9. nuchal times one easily reduced. spontaneous intact placenta 3vc. no complications LABOR SUMMARY EDC: 09/20/2016 00:00 No. Babies in Womb: 1 Attempted: No Labor Anesthesia: None LABOR INFORMATION Reason for Induction: Not Applicable Onset of Labor: 09/18/2016 17:00 Complete Dilatation: 09/18/2016 19:03 Oxytocin: N/A Group B Beta Strep: negative Antibiotics # of Doses: 0 Steroids Given: None Reason Steroids Not Administered: Not Applicable MEMBRANES Membranes Rupture Method: Spontaneous Rupture of Membranes: 09/18/2016 17:00 Length of Rupture (hr): 3.48 Amniotic Fluid Color: Clear Amniotic Fluid Amount: Moderate Amniotic Fluid Odor: Normal STAGES OF LABOR Stage 1 hr: 2 Stage 1 min: 3 Stage 2 hr: 1 Stage 2 min: 26 Stage 3 hr: 0 Stage 3 min: 9 Total Time in Labor hr: 3 Total Time in Labor min: 38 VAGINAL DELIVERY Episiotomy: None Laceration Extension: Second Degree Laceration Type: Perineal Laceration Repair: Yes Laceration Repair Note: repair running stitch 3-0 vicryl. 2nd deg perineal lac repaired in usual fashion Sponge Count Correct: N/A CSECTION DELIVERY Primary Indication: N/A Secondary Indication: N/A CSection Incidence: N/A Labor: N/A Elective: N/A CSection Incision: N/A BABY A INFORMATION Infant Delivery Date/Time: 09/18/2016 20:29 Method of Delivery: Vaginal Born in Route : No : N/A Forceps: N/A Vacuum Extraction: N/A Shoulder Dystocia : No PRESENTATION/POSITION BABY A Presentation: Cephalic Cephalic Presentation: Vertex Vertex Position: Right Occipital Anterior Breech Presentation: N/A PLACENTA INFORMATION BABY A Placenta Delivery Time : 09/18/2016 20:38 Placenta Method of Delivery: Spontaneous Placenta Status: Delivered SCORES BABY A Heart Rate 1 min: >100 bpm Resp Effort 1 min: Good Cry Reflex Irritability 1 min: Cough or Sneeze or Pulls Away Muscle Tone 1 min: Active Motion Color 1 min: Body [place], Extremities Blue Resuscitation Effort 1 min: Tactile Stimulation SCORE 1 MIN: 9 Heart Rate 5 min: >100 bpm Resp Effort 5 min: Good Cry Reflex Irritability 5 min: Cough or Sneeze or Pulls Away Muscle Tone 5 min: Active Motion Color 5 min: Body [place], Extremities Blue Resuscitation Effort 5 min: Tactile Stimulation SCORE 5 MIN: 9 INFORMATION BABY A Gestational Age at Delivery: 39.5 Gestational Status: Full Term- 39- 40.6 Weeks Outcome : Liveborn Infant Condition : Stable Sex: Male IDENTIFICATION BABY A Verification Date/Time: 09/18/2016 20:36 ID Band Number: [id number] Mother's Name Verified: Yes RN Verifying Infant: SAnne SHANE Melchor Additional Verifying Personnel: Suzette Gonzalez CNA/ WEIGHT/LENGTH BABY A Birthweight (gm): 3550 Infant Weight (lb): 7 Infant Weight (oz): 13 Length (in): 20.75 Infant Length (cm): 52.71 CORD INFORMATION BABY A No. Cord Vessels: 3 Nuchal Cord : Around Neck x1, Loose Cord Blood Taken: Yes-For Storage (Mom's Blood type +) Suction: None ASSESSMENT BABY A Complications: None Physical Findings at Delivery: Within Normal Limits Respirations: Appears Normal Skin to Skin: Yes Skin to Skin Time (min): 90 Chemist/ALS Called : No Infant Care By: Billy Cortes RN Transferred To: Remains with Mother BABY B INFORMATION : N/A SIGNATURES Signature: with User ID: [email or web address]
--- NOTE | 2016-09-18 23:06 | Admission Physical ---
Datetime Report Generated by CPN: 09/18/2016 23:06 CURRENT ADMISSION Hx Assessment: The History has been Reviewed and is Current Chief Complaint: Uterine Contractions; Suspected Ruptured Membranes Indication for Induction: Not Applicable Admit Plan: Admit to Unit; Initiate Labor Protocol ALLERGIES Medication Allergies: No Medication Allergies: No Known Drug Allergies (09/17/2016) Medication Allergies: No Known Drug Allergies (09/15/2016) Latex: No Latex Allergies Food Allergies: none Environmental Allergies: none OBSTETRICAL HISTORY EDC: 09/20/2016 00:00 : 1 Para: 0 Term: 0 : 0 SAB: 0 IAB: 0 Ectopic: 0 Livin Cesareans: 0 VBACs: 0 Multiple Births: 0 Gestational Diabetes: No Rh Sensitization: No Incompetent Cervix: No LAISE: No Infertility: No ART Treatment: No Uterine Anomaly: No IUGR: No Hx Previous C/S: No Macrosomia: No Hx Loss/Stillborn: No PIH: No Hx : No Placenta Previa/Abruption: No Depression/PP Depression: No PTL/PROM: No Post Hemorrhage: No Current Procedures: Ultrasound; NST Obstetrical History Comments: G1-current SEE RECORDS Alcohol: No Marijuana : No Cocaine: No Other Illicit Drugs: No Cigarettes: Never Smoker. [id number] MEDICAL HISTORY Diabetes: No Blood Transfusion: No Pulmonary Disease (Asthma, TB): No Breast Disease: No Hypertension: No [employer] Surgery: No Heart Disease: No Hosp/Surgery: Yes (Annotations: Data stored by N on behalf of user) Autoimmune Disorder: No Anesthetic Complications: No Kidney Disease: No Abnormal Pap Smear: No Neuro/Epilepsy: No Psychiatric Disorders: No Other Medical Diseases: No Hepatitis/Liver Disease: No Significant Family History: No Varicosities/Phlebitis: No Trauma/Violence : No Thyroid Dysfunction: No Medical History Comments: tooth extraction, fibroids removed from breast INFECTIOUS HISTORY Gonorrhea: No Genital Herpes: No Chlamydia: Yes Tuberculosis: No Syphilis: No Hepatitis: No HIV/AIDS Exposure: No Rash or Viral Illness: No HPV: No PHYSICAL EXAM General: Normal HEENT: Normal Neurologic: Normal Thyroid: Deferred Heart: Normal Lungs: Normal Breast: Normal Back: Normal Abdomen: Normal Genitourinary Exam: Deferred Extremities: Normal DTRs: Normal Pelvic Type: Adequate Vital Signs: Reviewed VAGINAL EXAM Dilatation: 3 Effacement: 80 Station: -1 Contraction Comments: 2-3 MEMBRANES Membranes: Ruptured Amniotic Fluid Color: Clear FETUS A EGA: 39.5 Monitoring: External US FHR- Baseline: 150 Variability: Moderate 6-25bpm Accelerations: 15X15 Decelerations: None FHR Category: Category I Estimated Weight (gm): 3800 Admit Comment: SROM 1500 today clear, states active fetus, denies vag bleeding hx + chlamydia on 08/27->tx, awaiting [facility] PNC in [place] and [facility], transfer at 28w Varicella vaccine exposure in early 1st trimester Pt speaks new zeal[place]/mandarin, some mexican GBS negative See hx for complete hx NKDA PLANS FOR LABOR AND DELIVERY Labor and Delivery: None Pain Management: Natural; Epidural Feeding Preference: Both Benefit of Breast Feed Discussed: Yes Circumcision: Yes INFORMED CONSENT Assignment: Dori Rodriguez MD Signature: with User ID: Larry : with User ID: [email or web address]
[2016-09-18] MEDS ORDERED: IBUPROFEN 800 MG TABLET PO ONE (23:15)
[2016-09-19] MEDS: IBUPROFEN 800 MG TABLET PO SCH ×4 (06:56→21:42)
--- NOTE | 2016-09-19 07:00 | L&D Flow Sheet ---
LD Flowsheet Datetime Report Generated by CPN: 09/19/2016 07:00 Datetime: 09/18/2016 22:15 Stage of : Recovery (Peggy Field, RN) Datetime: 09/18/2016 22:06 NBP Sys/Nery/Mean (mmHg): 102 (QS system process) : 58 (QS system process) : 75 (QS system process) Pulse: 90 (QS system process) Datetime: 09/18/2016 22:00 Stage of : Recovery (Peggy Field, RN) Datetime: 09/18/2016 21:45 Stage of : Recovery (Peggy Field, RN) Datetime: 09/18/2016 21:36 NBP Sys/Nery/Mean (mmHg): 105 (QS system process) : 56 (QS system process) : 72 (QS system process) Pulse: 90 (QS system process) Datetime: 09/18/2016 21:30 Stage of : Recovery (Peggy Field, RN) Datetime: 09/18/2016 21:15 Stage of : Recovery (Peggy Field, RN) Datetime: 09/18/2016 21:06 NBP Sys/Nery/Mean (mmHg): 107 (QS system process) : 66 (QS system process) : 79 (QS system process) Pulse: 96 (QS system process) Datetime: 09/18/2016 21:00 Stage of : Recovery ([facility]) Pain Scale: 2 ([facility]) Pain Presence: Constant ([facility]) Pain Type: Burning ([facility]) Pain Location: Perineum ([facility]) Pain Goal: 0 ([facility]) Pain Relief Measures: Comfort Measures ([facility]) Datetime: 09/18/2016 20:45 Stage of : Recovery ([facility]) Temperature (F): 98.0 ([facility]) Temperature (C): 36.7 (QS system process) Temperature Route: Oral ([facility]) Datetime: 09/18/2016 20:36 NBP Sys/Nery/Mean (mmHg): 108 (QS system process) : 56 (QS system process) : 70 (QS system process) Pulse: 100 (QS system process) LaborFlag: Labor (QS system process) Datetime: 09/18/2016 20:29 Pulse: 124 (QS system process) SpO2 (%): 97 (QS system process) LaborFlag: Labor (QS system process) Datetime: 09/18/2016 20:23 Pulse: 134 (QS system process) SpO2 (%): 100 (QS system process) LaborFlag: Labor (QS system process) Datetime: 09/18/2016 20:15 Monitor Mode: External; Palpation (Peggy Field, RN) Frequency (min): 2-2.5 (Peggy Field, RN) Quality: Moderate to Strong (Peggy Field, RN) Duration (sec): 50-90 (Peggy Field, RN) Resting Tone (Palpate): Relaxed (Peggy Field, RN) Monitor Mode: External US (Peggy Field, RN) FHR Baseline Rate : 125 (Peggy Field, RN) Variability: Moderate 6-25 bpm (Peggy Field, RN) Accelerations: None (Peggy Field, RN) Decelerations: Variable (Peggy Field, RN) Datetime: 09/18/2016 20:07 NBP Sys/Nery/Mean (mmHg): 107 (QS system process) : 91 (QS system process) : 96 (QS system process) Pulse: 136 (QS system process) LaborFlag: Labor (QS system process) Datetime: 09/18/2016 20:00 Monitor Mode: External; Palpation (Peggy Field, RN) Frequency (min): 1.5-2 (Peggy Field, RN) Quality: Moderate to Strong (Peggy Field, RN) Duration (sec): 50-80 (Peggy Field, RN) Resting Tone (Palpate): Relaxed (Peggy Field, RN) Monitor Mode: External US (Peggy Field, RN) FHR Baseline Rate : 125 (Peggy Field, RN) Variability: Moderate 6-25 bpm (Peggy Field, RN) Accelerations: 10X10 (Peggy Field, RN) Decelerations: Variable (Peggy Field, RN) Datetime: 09/18/2016 19:45 Monitor Mode: External; Palpation (Peggy Field, RN) Frequency (min): 1.5-2.5 (Peggy Field, RN) Quality: Moderate to Strong (Peggy Field, RN) Duration (sec): 50-70 (Peggy Field, RN) Resting Tone (Palpate): Relaxed (Peggy Field, RN) Monitor Mode: External US (Peggy Field, RN) FHR Baseline Rate : 125 (Peggy Field, RN) Variability: Moderate 6-25 bpm (Peggy Field, RN) Accelerations: None (Peggy Field, RN) Decelerations: None (Peggy Field, RN) Datetime: 09/18/2016 19:36 NBP Sys/Nery/Mean (mmHg): 132 (QS system process) : 100 (QS system process) : 112 (QS system process) Pulse: 110 (QS system process) LaborFlag: Labor (QS system process) Datetime: 09/18/2016 19:30 Stage of : Labor (Yuan Claire RN) Respirations: 22 (Yuan Claire RN) Monitor Mode: External; Palpation (Yuan Claire RN) Monitor Mode: External (Yuan Claire RN) Frequency (min): 1.5-2.5 (Yuan Claire RN) Quality: Moderate to Strong (Yuan Claire RN) Duration (sec): 55-70 (Yuan Claire RN) Resting Tone (Palpate): Relaxed (Yuan Claire, SHANE) Monitor Mode: External US (Yuan Claire RN) FHR Baseline Rate : 130 (Yuan Claire RN) FHR Baseline Changes: No Baseline Change (Yuan Claire RN) Variability: Moderate 6-25 bpm (Yuan Claire RN) Accelerations: 15X15 (Yuan Claire, RN) Decelerations: None (Yuan Claire RN) Comfort Measures: Coaching (Yuan Claire RN) Pushing: Coached on Pushing; Urge to Push (Yuan Claire RN) Pushing Position: Pushing with Contractions; Pushing Lithotomy (Yuan Claire RN) Pushing Progress: Descent with Pushing (Yuan Claire RN) Communication: RN at Bedside; RN Reviewed Strip; Provider at Bedside (Yuan Claire RN) LaborFlag: Labor (QS system process) Datetime: 09/18/2016 19:27 Pushing: Coached on Pushing; Urge to Push (Yuan Claire RN) Pushing Position: Pushing with Contractions; Pushing Lithotomy (Yuan Claire RN) Pushing Progress: Ineffective Pushing (Yuan Claire RN) Datetime: 09/18/2016 19:24 Stage of : Labor (Yuan Claire RN) Communication: RN at Bedside; RN Reviewed Strip; Provider at Bedside (Yuan Claire RN) Communication Comments: DR RODRIGUEZ @ (Yuan Claire RN) Datetime: 09/18/2016 19:15 Monitor Mode: External; Palpation (Marilyn Camp, RNC) Monitor Interventions for UA: [place] Adjusted (Marilyn Camp, RNC) Frequency (min): 1-3 (Marilyn Camp, RNC) Quality: Moderate to Strong (Marilyn Camp, RNC) Duration (sec): 60-80 (Marilyn Camp, RNC) Duration Criteria: Less than Two 120 Second Contractions (Marilyn Camp, RNC) Pattern: Normal: <= 5 Contractions in 10 Minutes (Marilyn Camp, RNC) Resting Tone (Palpate): Relaxed (Marilyn Camp, RNC) Monitor Mode: External US; Auscultation (Marilyn Camp, RNC) Monitor Interventions for FHR: Ultrasound Adjusted (Marilyn Camp, RNC) FHR Baseline Rate : 135 (Marilyn Camp, RNC) FHR Baseline Changes: No Baseline Change (Marilyn Camp, RNC) Variability: Moderate 6-25 bpm (Marilyn Camp, RNC) Accelerations: 15X15 (Marilyn Camp, RNC) Decelerations: None (Marilyn Camp, RNC) Datetime: 09/18/2016 19:10 Communication Comments: Dr Rodriguez called notified of pt complete +2, please come for delivery now. States she is on the way. (Zeb Greene RN) Datetime: 09/18/2016 19:03 Dilatation (cm): 10.0 (Marilyn Camp, RNC) Effacement (%): 100 (Marilyn Camp, RNC) Station: 2 (Marilyn Camp, RNC) Exam by: Evelyn Lau (Marilyn Camp, RNC) Datetime: 09/18/2016 19:00 Monitor Mode: External (Zeb Greene RN) Frequency (min): 2-3 (Zeb Greene RN) Quality: Moderate to Strong (Marilyn Camp, RNC) Duration (sec): 60-80 (Marilyn Camp, RNC) Duration Criteria: Less than Two 120 Second Contractions (Marilyn Camp, RNC) Pattern: Normal: <= 5 Contractions in 10 Minutes (Marilyn Camp, RNC) Resting Tone (Palpate): Relaxed (Marilyn Camp, RNC) Monitor Mode: External US (Zeb Greene RN) FHR Baseline Rate : 140 (Zeb Greene RN) Variability: Moderate 6-25 bpm (Zeb Greene RN) Accelerations: 15X15 (Zeb Greene RN) Decelerations: None (Zeb Greene RN) Communication: RN Reviewed Strip (Zeb Greene RN)
[2016-09-19 07:09] LABS: CHLAM PCR NOT DETECTED (NOT DETECT)
[2016-09-19 07:51] LABS: HEMATOCRIT 31.7 % (36.0-47.0); HGB HCT DIFFERENCE 1.3; MEAN CORPUSCULAR HEMOGLOBIN 30.6 pg (27.0-33.4); MEAN CORPUSCULAR HGB CONC 34.6 g/dL (32.0-36.0); MEAN CORPUSCULAR VOLUME 88 fl (80-97); RED BLOOD COUNT 3.58 10^6/uL (3.72-5.28); RED CELL DISTRIBUTION WIDTH 13.7 % (11.5-14.0); WHITE BLOOD COUNT 13.9 10^3/uL (4.0-10.5)
[2016-09-19] MEDS: SENNOSIDES/DOCUSATE 8.6-50 MG 1 EACH TABLET PO SCH (09:13)
[2016-09-19] MEDS: PRENATAL VITAMIN W-O CA NO5/FE FUMARATE/FA CAPSULE PO SCH (09:13)
[2016-09-19] MEDS: DOCUSATE SODIUM 100 MG CAPSULE PO SCH ×2 (09:14→17:53)
[2016-09-19] MEDS: FERROUS SULFATE 325 MG TABLET PO SCH ×2 (09:14→17:53)
--- NOTE | 2016-09-19 16:11 | PDOC PROGRESS REPORT ---
Subjective-OB Subjective: Post Delivery Day:1 26 year old s/p . Trying to breastfeed but having difficulty requesting formula at this time. Denies any other needs at this time Physical Exam (OB) Vital Signs: Temp Pulse Resp BP Pulse Ox 98.4 F 77 16 98/52 L 96 09/19/16 08:06 09/19/16 08:06 09/19/16 08:06 09/19/16 08:06 09/19/16 08:06 Intake & Output 09/18/16 09/19/16 09/20/16 06:59 06:59 06:59 Weight 70.15 kg - General General Appearance: Appears well In distress: None - PIH/Pre-Eclampsia Headache: Absent Epigastric Pain: No Visual Changes: No - Episiotomy/Laceration Site Condition: Well Approximated, Edematous - declines coldpacks - Lochia Lochia Amount: Scant < 10 ml Lochia Color: Rubra/Red - Abdomen Description: Soft Hernia Present: No Fundal Description: Firm Fundal Height: u/u - u/2 - Respiratory Respiratory Status: No respiratory distress - Extremities Upper extremity: Normal inspection Lower extremities: Normal inspection - Neurological Cognition: Normal Orientation: AAOx4 - family at bedside - Psychological Associated symptoms: Normal affect, Normal mood Objective-Diagnostic Laboratory: 09/19/16 07:32 09/18/16 09/18/16 09/18/16 17:17 17:40 17:40 WBC 13.0 H RBC 4.41 Hgb 13.5 Hct 39.1 MCV 89 MCH 30.5 MCHC 34.4 RDW 13.9 Plt Count 183 Seg Neutrophils % 85.5 H Lymphocytes % 9.6 L Monocytes % 4.7 Eosinophils % 0.1 Basophils % 0.1 Absolute Neutrophils 11.1 H Absolute Lymphocytes 1.2 Absolute Monocytes 0.6 Absolute Eosinophils 0.0 Absolute Basophils 0.0 Urine Color YELLOW Urine Appearance CLOUDY Urine pH 6.0 Ur Specific [place] 1.010 Urine Protein 100 H Urine Glucose (UA) NEGATIVE Urine Ketones 80 H Urine Blood LARGE H Urine Nitrite NEGATIVE Ur Leukocyte Esterase MODERATE H Blood Type AB POSITIVE Antibody Screen NEGATIVE 09/19/16 07:32 WBC 13.9 H RBC 3.58 L Hgb 11.0 L D Hct 31.7 L MCV 88 MCH 30.6 MCHC 34.6 RDW 13.7 Plt Count 183 Seg Neutrophils % Lymphocytes % Monocytes % Eosinophils % Basophils % Absolute Neutrophils Absolute Lymphocytes Absolute Monocytes Absolute Eosinophils Absolute Basophils Urine Color Urine Appearance Urine pH Ur Specific [place] Urine Protein Urine Glucose (UA) Urine Ketones Urine Blood Urine Nitrite Ur Leukocyte Esterase Blood Type Antibody Screen Assessment and Plan(PN) - Assessment and Plan (1) Vaginal delivery Is this a current diagnosis for this admission?: YesPlan: continue stay - Time Spent with Patient Time with patient: 15-25 minutes Medications reviewed and adjusted accordingly: Yes - Disposition Anticipated Discharge: Home Within: within 24 hours
--- NOTE | 2016-09-19 18:01 | L&D General Admission ---
General Admit Datetime Report Generated by CPN: 09/19/2016 18:00 INFORMATION Patient Age: 26 (09/14/2016 23:59:QS system process) EDC: 09/20/2016 00:00 (09/15/2016 00:04:Libia Duke) : 1 (09/15/2016 00:04:Libia Duke) Para: 0 (09/15/2016 00:04:Libia Duke) Term: 0 (09/15/2016 00:04:Ivy Melchor RN) : 0 (09/15/2016 00:04:Ivy Melchor RN) Spontaneous Abortions: 0 (09/15/2016 00:04:Ivy Melchor RN) Induced Abortions: 0 (09/15/2016 00:04:Ivy Melchor RN) Livin (09/15/2016 00:04:Ivy Melchor RN) Cesareans: 0 (09/15/2016 00:04:Ivy Melchor RN) VBACs: 0 (09/15/2016 00:04:Ivy Melchor RN) Ectopic: 0 (09/15/2016 00:04:Ivy Melchor RN) Multiple Births: 0 (09/15/2016 00:04:Ivy Melchor RN) Baby, Number in Womb: 1 (09/15/2016 00:04:Ivy Melchor RN) CARE Primary Tetryl Nitrator Operator: [facility] (09/15/2016 00:04:Libia Duke) Adequate Care: Yes (09/15/2016 00:04:Ivy Melchor RN) Height (in): 64 (09/19/2016 09:22:QS system process) ALLERGIES Medication Allergy: No (09/15/2016 00:04:Libia Duke) Medication Allergies: No Known Drug Allergies (09/17/2016) (09/17/2016 06:05:QS system process) Latex Allergy: No Latex Allergies (09/15/2016 00:04:Libia Duke) Food Allergies: none (09/15/2016 00:04:Libia Duke) Environmental Allergies: none (09/15/2016 00:04:Libia Duke) COMMUNICATION Primary Language: Korean (09/15/2016 00:04:Libia Duke) Medical Tx Preferred Language: Urdu (09/15/2016 00:04:Libia Duke) Urdu Communication Ability: No understanding, SENIOR PROCUREMENT SPECIALIST needed (09/15/2016 00:04:Yuan Claire RN) Communication Barrier(s): None (09/15/2016 00:04:Yuan Claire RN) DEMOGRAPHICS Address: [address] [place] [id number] (09/14/2016 23:59:QS system process) Zipcode: [address] (09/14/2016 23:59:QS system process) Home (09/14/2016 23:59:QS system process) SSN: [id number] (09/14/2016 23:59:QS system process) Next of Kin Name: TROY RAMON (09/14/2016 23:59:QS system process) Next of Kin (09/14/2016 23:59:QS system process) Next of Kin Relationship: SPO (09/14/2016 23:59:QS system process) Date of : 1990 (09/14/2016 23:59:QS system process) Marital Status: (09/14/2016 23:59:QS system process) Sex: Female (09/14/2016 23:59:QS system process) Race: (09/14/2016 23:59:QS system process) Ethnicity: Non- or (09/14/2016 23:59:QS system process) Adventist: None (09/14/2016 23:59:QS system process) DRUG AND ALCOHOL USE Alcohol: No (09/15/2016 00:04:Libia Duke) Cigarettes: Never Smoker. [id number] (09/15/2016 00:04:Libia Duke) Marijuana: No (09/15/2016 00:04:Libia Duke) Cocaine: No (09/15/2016 00:04:Libia Duke) Other Illicit Drugs: No (09/15/2016 00:04:Libia Duke) VACCINE HISTORY Influenza Vaccine: No (09/15/2016 00:04:Libia Duke) Pneumococcal Vaccine: No (09/15/2016 00:04:Libia Duke) Tetanus Vaccine: No (09/15/2016 00:04:Libia Duke) Tdap Date: 2016 (09/15/2016 00:04:Libia Duke) Hepatitis B Vaccine: No (09/15/2016 00:04:Libia Duke) Daytime Caregiver: [facility] (09/15/2016 00:04:Libia Duke) Feeding Preference: Both (09/15/2016 00:04:Libia Duke) Benefit of Breast Feed Discussed: Yes (09/15/2016 00:04:Peggy Petersen RN) Circumcision: Yes (09/15/2016 00:04:Libia Duke) Classes Attended: Yes (09/15/2016 00:04:Libia Duke) Tubal Ligation: No (09/15/2016 00:04:Libia Duke) Tubal Authorization Signed: N/A (09/15/2016 00:04:Libia Duke) Consent: N/A (09/15/2016 00:04:Libia Duke) Consent Signed: N/A (09/15/2016 00:04:Libia Duke) Pain Management Plans: Natural; Epidural (09/15/2016 00:04:Libia Duke) Plans for Labor and Delivery: None (09/15/2016 00:04:Libia Duke) Support Person: Troy- (09/15/2016 00:04:Libia Duke) Support Person Relationship: (09/15/2016 00:04:Libia Duke) Cultural/Spritual Practice: N/A (09/15/2016 00:04:Libia Duke) Spir/Cult Dietary Needs: N/A (09/15/2016 00:04:Libia Duke) LIVING SITUATION/DISCHARGE PLAN Living Arrangements: House (09/15/2016 00:04:Libia Duke) Adequate Access to:: Electric; Heat; Refrigeration; Plumbing/Running water; Phone; Transportation (09/15/2016 00:04:Libia Duke) WIC Program: Yes (09/15/2016 00:04:Libia Duke) Discharge Try Out Person Person: ever (09/15/2016 00:04:Libia Duke) Person to Help after Discharge: ever (09/15/2016 00:04:Libia Duke) Currently Using Commun Resources: Yes (09/15/2016 00:04:Libia Duke) Specify Current Resource Used: medicaid (09/15/2016 00:04:Libia Duke) Outside Agency/Lithograph Printer: No (09/15/2016 00:04:Yuan Claire RN) Car Seat for Discharge: Yes (09/15/2016 00:04:Yuan Claire RN) Adoption Requested: No (09/15/2016 00:04:Yuan Clarie RN) Pt Contact w/infant Post : N/A (09/15/2016 00:04:Yuan Claire RN) LABS Blood Type: AB Positive (09/15/2016 00:04:Verna Bautista RN) Antibody Screen: negative (09/15/2016 00:04:Verna Bautista RN) Hemoglobin: 11.0 L (09/19/2016 07:32:QS system process) Hematocrit: 31.7 L (09/19/2016 07:32:QS system process) MCV: 88 (09/19/2016 07:32:QS system process) Group Beta Strep: negative (09/15/2016 00:04:Verna Bautista RN) Gonorrhea: Negative (09/15/2016 00:04:Verna Bautista RN) Chlamydia: Positive (09/15/2016 00:04:Verna Bautista RN) RPR/VDRL: Nonreactive (09/15/2016 00:04:Verna Bautista RN) HIV Results: non-reactive (09/15/2016 00:04:Verna Bautista RN) Hepatitis B: Negative (09/15/2016 00:04:Verna Bautista RN) Rubella: Immune (09/15/2016 00:04:Verna Bautista RN) OB/PREVIOUS HISTORY Previous Procedures: None (09/15/2016 00:04:Libia Duke) Current Procedures: Ultrasound; NST (09/15/2016 00:04:Libia Duke) History of Previous : No (09/15/2016 00:04:Libia Duke) History of Gestational Diabetes: No (09/15/2016 00:04:Libia Duke) History of PIH: No (09/15/2016 00:04:Libia Duke) History of Incompetent Cervix: No (09/15/2016 00:04:Libia Duke) History of Placenta Previa/Abrup: No (09/15/2016 00:04:Libia Duke) History of Macrosomia: No (09/15/2016 00:04:Libia Duke) History of IUGR: No (09/15/2016 00:04:Libia Duke) History of Hemorrhage: No (09/15/2016 00:04:Libia Duke) History of Loss/Stillborn: No (09/15/2016 00:04:Libia Duke) History of : No (09/15/2016 00:04:Libia Duke) History of D (Rh) Sensitization: No (09/15/2016 00:04:Libia Duke) History Recurrent Loss/Stillborn: No (09/15/2016 00:04:Libia Duke) History Depression/PP Depression: No (09/15/2016 00:04:Libia Duke) History of Uterine Anomaly/ALISE: No (09/15/2016 00:04:Libia Duke) History of Infertility: No (09/15/2016 00:04:Libia Duke) History of ART Treatment: No (09/15/2016 00:04:Libia Duke) History of ALISE: No (09/15/2016 00:04:Libia Duke) Comments Obstetrical History: G1-current (09/15/2016 00:04:Libia Duke) MEDICAL HISTORY Med Hx Diabetes: No (09/15/2016 00:04:Libia Duke) Med Hx Hypertension: No (09/15/2016 00:04:Libia Duke) Med Hx Heart Disease: No (09/15/2016 00:04:Libia Duke) Med Hx Autoimmune Disorder: No (09/15/2016 00:04:Libia Duke) Med Hx Kidney Disease/UTI: No (09/15/2016 00:04:Libia Duke) Med Hx Neurologic/Epilepsy: No (09/15/2016 00:04:Libia Duke) Med Hx Psychiatric Disorders: No (09/15/2016 00:04:Libia Duke) Med Hx Hepatitis/Liver Disease: No (09/15/2016 00:04:Libia Duke) Med Hx Varicosities/Phlebitis: No (09/15/2016 00:04:Libia Duke) Med Hx Thyroid Dysfunction: No (09/15/2016 00:04:Libia Duke) Med Hx Trauma/Violence: No (09/15/2016 00:04:Libia Duke) Med Hx Blood Transfusion: No (09/15/2016 00:04:Libia Duke) Med Hx Pulmonary (Asthma,TB): No (09/15/2016 00:04:Libia Duke) Med Hx Breast: No (09/15/2016 00:04:Libia Duke) Med Hx ORNAMENTAL BRICK INSTALLER Surgery: No (09/15/2016 00:04:Libia Duke) Med Hx Hospitalization/Surgery: Yes (Annotations: Data stored by CPN on behalf of user) (09/15/2016 00:04:Shellie Marx RN) Med Hx Anesthetic Complications: No (09/15/2016 00:04:Libia Duke) Med Hx Abnormal Pap Smear: No (09/15/2016 00:04:Libia Duke) Other Medical Diseases: No (09/15/2016 00:04:Libia Duke) Med Hx Significant Family Hx: No (09/15/2016 00:04:Libia Duke) Details of Med/Surg Hx: tooth extraction, fibroids removed from breast (09/15/2016 00:04:Shellie Marx RN) INFECTIOUS HISTORY Inf Hx Gonorrhea: No (09/15/2016 00:04:Libia Duke) Inf Hx Chlamydia: Yes (09/15/2016 00:04:Shellie Marx RN) Inf Hx Syphilis: No (09/15/2016 00:04:Libianathan Duke) Inf Hx HIV/AIDS: No (09/15/2016 00:04:Libia Duke) Inf Hx Human Papilloma Virus: No (09/15/2016 00:04:Libianathan Duke) Inf Hx Pt/Partner Genital Herpes: No (09/15/2016 00:04:Libia Duke) Inf Hx Tuberculosis/Exposure: No (09/15/2016 00:04:Libia Duke) Inf Hx Hepatitis B,C: No (09/15/2016 00:04:Libianathan Duke) Inf Hx Rash or Viral Illness: No (09/15/2016 00:04:Libia Duke) GENETIC HISTORY Gen Hx Age >=35 at FINN: No (09/15/2016 00:04:Libia Duke) Gen Hx Thalassemia: No (09/15/2016 00:04:Libia Duke) Gen Hx Congenital Heart Defect: No (09/15/2016 00:04:Libia Duke) Gen Hx Neural Tube Defect: No (09/15/2016 00:04:Libia Duke) Gen Hx Down's Syndrome: No (09/15/2016 00:04:Libia Duke) Gen Hx Kenji-Sachs: No (09/15/2016 00:04:Libia Duke) Gen Hx Yumiko: No (09/15/2016 00:04:Libia Duke) Gen Hx Familial Dysautonomia: No (09/15/2016 00:04:Libia Duke) Gen Hx Sickle Cell Disease/Trait: No (09/15/2016 00:04:Libia Duke) Gen Hx Hemophilia/Blood Disorder: No (09/15/2016 00:04:Libia Duke) Gen Hx Muscular Dystrophy: No (09/15/2016 00:04:Libia Duke) Gen Hx Cystic Fibrosis: No (09/15/2016 00:04:Libia Duke) Gen Hx Huntingtons Chorea: No (09/15/2016 00:04:Libia Duke) Gen Hx Mental Retardation/Autism: No (09/15/2016 00:04:Libia Duke) Gen Hx Tested for Fragile X: No (09/15/2016 00:04:Libia Duke) Gen Hx Other Inher/Chromosomal: No (09/15/2016 00:04:Libia Duke) Gen Hx Maternal Metabolic DO: No (09/15/2016 00:04:Libia Duke) Gen Hx Pt Father or FOB Defect: No (09/15/2016 00:04:Libia Duke) Gen Hx Other Genetic History: No (09/15/2016 00:04:Libia Duke) Gen Hx Drugs/Meds since LMP: No (09/15/2016 00:04:Libia Duke)
--- NOTE | 2016-09-19 18:15 | L&D Care Plan ---
LD CARE PLANS Datetime Report Generated by CPN: 09/19/2016 18:15 Datetime: 09/18/2016 18:31 State: Risk For (Yuan Claire RN) Related To: Labor and Delivery Process; Complication(s) of (Yuan Claire RN) Goal(s): Patients Pain will be Assessed and Managed; Patient will Verbalize Adequate Relief of Pain or the Ability to [place] with Current Pain (Yuan Claire RN) Interventions: Assess Pain Severity on Scale of 0 (None) to 5 (Severe); Assess Type, Location and Intensity of Pain Each Time Client Reports Discomfort and Notify Provider if Unusal Pain Develops (Yuan Claire RN) Outcome: Patient will Report Absence or Relief of Pain Consistent with Established Pain Goal (Yuan Claire RN) Status: Ongoing (Yuan Claire RN) Outcome: Patient will have a Decrease in Signs and Symptoms of Discomfort (Yuan Claire RN) Status: Ongoing (Yuan Claire RN) State: Risk For (Yuan Claire RN) Related To: Labor and Delivery Process; Perceived or Actual Threat to ; Fear of Unknown (Yuan Claire RN) Goal(s): Patient will have Decreased Anxiety and be able to Function at Acceptable Levels (Yuan Claire RN) Interventions: Assess Verbal and Nonverbal Behavioral Indicators of Anxiety; Assist Patient to Identify and Verbalize Symptoms of Anxiety; Identify and Demonstrate Techniques to Control Anxiety (Yuan Claire RN) Outcome: Patient will Identify, Verbalize and Demonstrate Techniques to Control Anxiety (Yuan Claire RN) Status: Ongoing (Yuan Claire RN) Outcome: Patient's Posture, Facial Expressions, Gestures and Activity Level will Reflect Decreased Anxiety (Yuan Claire RN) Status: Ongoing (Yuan Claire RN) Outcome: Patient will Verbalize a Sense of Control and/or Acceptance of the Situation (Yuan Claire RN) Status: Ongoing (Yuan Claire RN) State: Actual (Yuan Claire RN) Related To: Labor and Delivery Process; Treatment and Procedures; Impending Alterations in Family Dynamics; Feeding and Care (Yuan Claire RN) Goal(s): Patient will Accurately Verbalize Understanding of Plan of Care and Treatment; Patient and Family will Accurately Verbalize Understanding of the Disease Process (Yuan Claire RN) Interventions: Assess Motivation and Willingness of Patient/Family to Learn; Assess Barriers to Learning: Pain, Emotional State, Language Barrier, Cognitive Impairment, Visual or Hearing Deficits; Instruct Patient and Family on Signs and Symptoms to Report (Yuan Claire RN) Outcome: Patient and Family will Verbalize Understanding of Condition, Treatment and Signs and Symptoms to Report (Yuan Claire RN) Status: Ongoing (Yuan Claire RN) Outcome: Patient will Identify Perceived Learning Needs and Express Motivation to Learn (Yuan Claire RN) Status: Ongoing (Yuan Claire RN) Outcome: Patient will Verbalize Understanding of Desired Content, and/or Performs Desired Skill Prior to Discharge (Yuan Claire RN) Status: Ongoing (Yuan Claire RN) State: Risk For (Yuan Claire RN) Related To: Prolonged Labor or Induction; Invasive Procedures; Altered Tissue Integrity (Yuan Claire RN) Goal(s): The Patient will be Free of Infection, Vital Signs Stable and Lab Work within Normal Parameters (Yuan Claire RN) Interventions: Instruct and Reinforce Proper Handwashing, Hygiene, and Care Techniques to Patient and Family; Monitor Vital Signs; Monitor Patient for the Following Signs of Infection: Fever, Abdominal Tenderness, Unusual Discharge; Monitor Aminiotic Fluid, Urine and Lochia for Color and Odor (Yuan Claire RN) Outcome: Patient will Remain Free of Infection (Yuan Claire RN) Status: Ongoing (Yuan Claire RN) Outcome: Infection will be Recognized Early to Allow for Prompt Treatment (Yuan Claire RN) Status: Ongoing (Yuan Claire RN) State: Not Applicable (Yuan Claire RN) State: Not Applicable (Yuan Claire RN) State: Risk For (Yuan Claire RN) Related To: Vaginal Delivery (Yuan Claire RN) Goal(s): Patient will Maintain Optimal Skin Integrity, Free of Breakdown, Injury or Infection (Yuan Claire RN) Interventions: Complete Screening for Pressure Ulcer Risk and Initiate Protocol per Hospital Policy; Monitor Site of Skin Impairment for Color Changes, Redness, Swelling, Warmth, Pain or Other Signs of Infection; Encourage and Assist with Position Changes (Yuan Claire RN) Outcome: Patient will not have Evidence of Injury Such as Skin Breakdown, Scrapes, Cuts, or Bruising (Yuan Claire RN) Status: Ongoing (Yuan Claire RN) Outcome: Patient will Report Any Altered Sensation or Pain at Site of Skin Impairment (Yuan Claire RN) Status: Ongoing (Yuan Claire RN) State: Not Applicable (Yuan Claire RN) State: Not Applicable (Yuan Claire RN) State: Not Applicable (Yuan Claire RN) Datetime: 09/18/2016 18:00 State: Risk For (Yuan Claire RN) Related To: Labor and Delivery Process; Complication(s) of (Yuan Claire RN) Goal(s): Patients Pain will be Assessed and Managed; Patient will Verbalize Adequate Relief of Pain or the Ability to [place] with Current Pain (Yuan Claire RN) Interventions: Assess Pain Severity on Scale of 0 (None) to 5 (Severe); Assess Type, Location and Intensity of Pain Each Time Client Reports Discomfort and Notify Provider if Unusal Pain Develops (Yuan Claire RN) Outcome: Patient will Report Absence or Relief of Pain Consistent with Established Pain Goal (Yuan Claire RN) Status: Ongoing (Yuan Claire RN) Outcome: Patient will have a Decrease in Signs and Symptoms of Discomfort (Yuan Claire RN) Status: Ongoing (Yuan Claire RN) State: Risk For (Yuan Claire RN) Related To: Labor and Delivery Process; Perceived or Actual Threat to ; Fear of Unknown (Yuan Claire RN) Goal(s): Patient will have Decreased Anxiety and be able to Function at Acceptable Levels (Yuan Claire RN) Interventions: Assess Verbal and Nonverbal Behavioral Indicators of Anxiety; Assist Patient to Identify and Verbalize Symptoms of Anxiety; Identify and Demonstrate Techniques to Control Anxiety (Yuan Claire RN) Outcome: Patient will Identify, Verbalize and Demonstrate Techniques to Control Anxiety (Yuan Claire RN) Status: Ongoing (Yuan Claire RN) Outcome: Patient's Posture, Facial Expressions, Gestures and Activity Level will Reflect Decreased Anxiety (Yuan Claire RN) Status: Ongoing (Yuan Claire RN) Outcome: Patient will Verbalize a Sense of Control and/or Acceptance of the Situation (Yuan Claire RN) Status: Ongoing (Yuan Claire RN) State: Actual (Yuan Claire RN) Related To: Labor and Delivery Process; Treatment and Procedures; Impending Alterations in Family Dynamics; Feeding and Infant Care (Yuan Claire RN) Goal(s): Patient will Accurately Verbalize Understanding of Plan of Care and Treatment; Patient and Family will Accurately Verbalize Understanding of the Disease Process (Yuan Claire RN) Interventions: Assess Motivation and Willingness of Patient/Family to Learn; Assess Barriers to Learning: Pain, Emotional State, Language Barrier, Cognitive Impairment, Visual or Hearing Deficits; Instruct Patient and Family on Signs and Symptoms to Report (Yuan Claire RN) Outcome: Patient and Family will Verbalize Understanding of Condition, Treatment and Signs and Symptoms to Report (Yuan Claire RN) Status: Ongoing (Yuan Claire RN) Outcome: Patient will Identify Perceived Learning Needs and Express Motivation to Learn (Yuan Claire RN) Status: Ongoing (Yuan Claire RN) Outcome: Patient will Verbalize Understanding of Desired Content, and/or Performs Desired Skill Prior to Discharge (Yuan Claire RN) Status: Ongoing (Yuan Claire RN) State: Risk For (Yuan Claire RN) Related To: Prolonged Labor or Induction; Invasive Procedures; Altered Tissue Integrity (Yuan Claire RN) Goal(s): The Patient will be Free of Infection, Vital Signs Stable and Lab Work within Normal Parameters (Yuan Claire RN) Interventions: Instruct and Reinforce Proper Handwashing, Hygiene, and Care Techniques to Patient and Family; Monitor Vital Signs; Monitor Patient for the Following Signs of Infection: Fever, Abdominal Tenderness, Unusual Discharge; Monitor Aminiotic Fluid, Urine and Lochia for Color and Odor (Yuan Claire RN) Outcome: Patient will Remain Free of Infection (Yuan Claire RN) Status: Ongoing (Yuan Claire RN) Outcome: Infection will be Recognized Early to Allow for Prompt Treatment (Yuan Claire RN) Status: Ongoing (Yuan Claire RN) State: Not Applicable (Yuan Claire RN) State: Not Applicable (Yuan Claire RN) State: Risk For (Yuan Claire RN) Related To: Vaginal Delivery (Yuan Claire RN) Goal(s): Patient will Maintain Optimal Skin Integrity, Free of Breakdown, Injury or Infection (Yuan Claire RN) Interventions: Complete Screening for Pressure Ulcer Risk and Initiate Protocol per Hospital Policy; Monitor Site of Skin Impairment for Color Changes, Redness, Swelling, Warmth, Pain or Other Signs of Infection; Encourage and Assist with Position Changes (Yuan Claire RN) Outcome: Patient will not have Evidence of Injury Such as Skin Breakdown, Scrapes, Cuts, or Bruising (Yuan Claire RN) Status: Ongoing (Yuan Claire RN) Outcome: Patient will Report Any Altered Sensation or Pain at Site of Skin Impairment (Yuan Claire RN) Status: Ongoing (Yuan Claire RN) State: Not Applicable (Yuan Claire RN) State: Not Applicable (Yuan Claire RN) State: Not Applicable (Yuan Claire RN)
--- NOTE | 2016-09-20 06:01 | L&D Current Admission ---
Current Admit Datetime Report Generated by CPN: 09/20/2016 06:00 ADMISSION INFORMATION Current Admit Date/Time: 09/18/2016 17:37 (09/18/2016 17:30:Yuan Claire RN) Reason for Admission: Rupture of Membranes (09/18/2016 17:30:Yuan Claire RN) Chief Complaint: Suspected Rupture of Membranes (09/18/2016 18:00:Yuan Claire RN) Medications During : Vitamin; Hydroxyzine (Vistaril) (09/18/2016 17:30:Yuan Claire RN) EGA per Dates: 39.5 (09/18/2016 17:30:QS system process) Method of Arrival: Wheelchair (09/18/2016 17:30:Yuan Claire RN) Admitted From: Home (09/18/2016 17:30:Yuan Claire RN) Records Available: Yes (09/18/2016 17:30:Yuan Claire RN) General Admission Information: Reviewed (09/18/2016 17:30:Yuan Claire RN) General Admission Reviewed By: Yuan Claire RN (09/18/2016 17:30:Yuan Claire RN) BELONGINGS/ADVANCED DIRECTIVES Valuables/Personal Effects: Cell Phone; Eyeglasses (09/18/2016 17:30:Yuan Claire RN) Disposition of Belongings: Kept with Patient (09/18/2016 17:30:Yuan Claire RN) Advance Direct for Healthcare: No, and Wants No Information (09/18/2016 17:30:Yuan Claire RN) Durable Power of Legal Transcriber: No (09/18/2016 17:30:Yuan Claire RN) Living Will: No (09/18/2016 17:30:Yuan Claire RN) Organ Donor: No (09/18/2016 17:30:Yuan Claire RN) Pt Rights Information Given: Yes (09/18/2016 17:30:Yuan Claire RN) Pt Understands Pt Rights: Yes (09/18/2016 17:30:Yuan Claire RN) LEARNING ASSESSMENT Knowledge Level: Understands L_D Process; Understands Diagnosis (09/18/2016 17:30:Yuan Claire RN) Barriers to Learning: None (09/18/2016 17:30:Yuan Claire RN) Learning Readiness: Motivated (09/18/2016 17:30:Yuan Claire RN) Learns Best By: Videos (09/18/2016 17:30:Yuan Claire RN) Learning Needs: Labor and Delivery Process; Pain Management; Symptoms to Report; Treatment Plan; Medication; Diagnosis; Nutrition; Equipment; Care; Community Resources (09/18/2016 17:30:Yuan Claire RN) DOMESTIC VIOLANCE SCREENING Addt'l Observ Indicating Abuse: No (09/18/2016 17:30:Yuan Claire RN) NUTRITIONAL/FUNCTIONAL SCREENING Problem with Appetite >5 Days: No (09/18/2016 17:30:Raquel Zamarripa RN) Chew/Swallow Difficulties: No (09/18/2016 17:30:Raquel Zamarripa RN) Inappropriate Wt Gain/Loss: No (09/18/2016 17:30:Raquel Zamarripa RN) Presence Skin Breakdown/Ulcer: No (09/18/2016 17:30:Raquel Zamarripa RN) Special Diet: No (09/18/2016 17:30:Raquel Zamarripa RN) Pt Requests Machine Assembler For Puller Over Visit: No (09/18/2016 17:30:Raquel Zamarripa RN) Hx of Any of the Following?: N/A (09/18/2016 17:30:Raquel Zamarripa RN) New Diagnosis of: N/A (09/18/2016 17:30:Raquel Zamarripa RN) Requires Assist w/Ambulation: No (09/18/2016 17:30:Yuan Claire RN) Uses Assist Device to Ambulate: No (09/18/2016 17:30:Yuan Claire RN) Pt Requires Help w/ADL's: No (09/18/2016 17:30:Yuan Claire RN)
--- NOTE | 2016-09-20 06:01 | L&D General Admission ---
General Admit Datetime Report Generated by CPN: 09/20/2016 06:00 INFORMATION Patient Age: 26 (09/14/2016 23:59:QS system process) EDC: 09/20/2016 00:00 (09/15/2016 00:04:Libia Duke) : 1 (09/15/2016 00:04:Libia Duke) Para: 0 (09/15/2016 00:04:Libia Duke) Term: 0 (09/15/2016 00:04:Ivy Melchor RN) : 0 (09/15/2016 00:04:Ivy Melchor RN) Spontaneous Abortions: 0 (09/15/2016 00:04:Ivy Melchor RN) Induced Abortions: 0 (09/15/2016 00:04:Ivy Melchor RN) Livin (09/15/2016 00:04:Ivy Melchor RN) Cesareans: 0 (09/15/2016 00:04:Ivy Melchor RN) VBACs: 0 (09/15/2016 00:04:Ivy Melchor RN) Ectopic: 0 (09/15/2016 00:04:Ivy Melchor RN) Multiple Births: 0 (09/15/2016 00:04:Ivy Melchor RN) Baby, Number in Womb: 1 (09/15/2016 00:04:Ivy Melchor RN) CARE Primary Circular Distributor: [facility] (09/15/2016 00:04:Libia Duke) Adequate Care: Yes (09/15/2016 00:04:Ivy Melchor RN) Height (in): 64 (09/19/2016 09:22:QS system process) ALLERGIES Medication Allergy: No (09/15/2016 00:04:Libia Duke) Medication Allergies: No Known Drug Allergies (09/17/2016) (09/17/2016 06:05:QS system process) Latex Allergy: No Latex Allergies (09/15/2016 00:04:Libia Duke) Food Allergies: none (09/15/2016 00:04:Libia Duke) Environmental Allergies: none (09/15/2016 00:04:Libai Duke) COMMUNICATION Primary Language: Greek (09/15/2016 00:04:Libia Duke) Medical Tx Preferred Language: Irish (09/15/2016 00:04:Libia Duke) Irish Communication Ability: No understanding, AUTH SPECIALIST needed (09/15/2016 00:04:Yuan Claire RN) Communication Barrier(s): None (09/15/2016 00:04:Yuan Claire RN) DEMOGRAPHICS Address: [address] [place] [id number] (09/14/2016 23:59:QS system process) Zipcode: [address] (09/14/2016 23:59:QS system process) Home (09/14/2016 23:59:QS system process) SSN: [id number] (09/14/2016 23:59:QS system process) Next of Kin Name: TROY RAMON (09/14/2016 23:59:QS system process) Next of Kin (09/14/2016 23:59:QS system process) Next of Kin Relationship: SPO (09/14/2016 23:59:QS system process) Date of : 1990 (09/14/2016 23:59:QS system process) Marital Status: (09/14/2016 23:59:QS system process) Sex: Female (09/14/2016 23:59:QS system process) Race: (09/14/2016 23:59:QS system process) Ethnicity: Non- or (09/14/2016 23:59:QS system process) Temple: None (09/14/2016 23:59:QS system process) DRUG AND ALCOHOL USE Alcohol: No (09/15/2016 00:04:Libia Duke) Cigarettes: Never Smoker. [id number] (09/15/2016 00:04:Ilbia Duke) Marijuana: No (09/15/2016 00:04:Libia Duke) Cocaine: No (09/15/2016 00:04:Libia Duke) Other Illicit Drugs: No (09/15/2016 00:04:Libia Duke) VACCINE HISTORY Influenza Vaccine: No (09/15/2016 00:04:Libia Duke) Pneumococcal Vaccine: No (09/15/2016 00:04:Libia Duke) Tetanus Vaccine: No (09/15/2016 00:04:Libia Duke) Tdap Date: 2016 (09/15/2016 00:04:Libia Duke) Hepatitis B Vaccine: No (09/15/2016 00:04:Libia Duke) Automation Controls Engineer: [facility] (09/15/2016 00:04:Libia Duke) Feeding Preference: Both (09/15/2016 00:04:Libia Duke) Benefit of Breast Feed Discussed: Yes (09/15/2016 00:04:Peggy Petersen RN) Circumcision: Yes (09/15/2016 00:04:Libia Duke) Classes Attended: Yes (09/15/2016 00:04:Libia Duke) Tubal Ligation: No (09/15/2016 00:04:Libia Duke) Tubal Authorization Signed: N/A (09/15/2016 00:04:Libia Duke) Consent: N/A (09/15/2016 00:04:Libia Duke) Consent Signed: N/A (09/15/2016 00:04:Libia Duke) Pain Management Plans: Natural; Epidural (09/15/2016 00:04:Libia Duke) Plans for Labor and Delivery: None (09/15/2016 00:04:Libia Duke) Support Person: Troy- (09/15/2016 00:04:Libia Duke) Support Person Relationship: (09/15/2016 00:04:Libia Duke) Cultural/Spritual Practice: N/A (09/15/2016 00:04:Libia Duke) Spir/Cult Dietary Needs: N/A (09/15/2016 00:04:Libia Duke) LIVING SITUATION/DISCHARGE PLAN Living Arrangements: House (09/15/2016 00:04:Libia Duke) Adequate Access to:: Electric; Heat; Refrigeration; Plumbing/Running water; Phone; Transportation (09/15/2016 00:04:Libia Duke) WIC Program: Yes (09/15/2016 00:04:Libia Duke) Discharge Radio Interference Trouble Shooter Person: ever (09/15/2016 00:04:Libia Duke) Person to Help after Discharge: ever (09/15/2016 00:04:Libia Duke) Currently Using Commun Resources: Yes (09/15/2016 00:04:Libia Duke) Specify Current Resource Used: medicaid (09/15/2016 00:04:Libia Duke) Outside Agency/Newsagent: No (09/15/2016 00:04:Yuan Claire RN) Car Seat for Discharge: Yes (09/15/2016 00:04:Yuan Claire RN) Adoption Requested: No (09/15/2016 00:04:Yuan Claire RN) Pt Contact w/infant Post : N/A (09/15/2016 00:04:Yuan Claire RN) LABS Blood Type: AB Positive (09/15/2016 00:04:Verna Bautista RN) Antibody Screen: negative (09/15/2016 00:04:Verna Bautista RN) Hemoglobin: 11.0 L (09/19/2016 07:32:QS system process) Hematocrit: 31.7 L (09/19/2016 07:32:QS system process) MCV: 88 (09/19/2016 07:32:QS system process) Group Beta Strep: negative (09/15/2016 00:04:Verna Bautista RN) Gonorrhea: Negative (09/15/2016 00:04:Verna Bautista RN) Chlamydia: Positive (09/15/2016 00:04:Verna Bautista RN) RPR/VDRL: Nonreactive (09/15/2016 00:04:Verna Bautista RN) HIV Results: non-reactive (09/15/2016 00:04:Verna Bautista RN) Hepatitis B: Negative (09/15/2016 00:04:Verna Bautista RN) Rubella: Immune (09/15/2016 00:04:Verna Bautista RN) OB/PREVIOUS HISTORY Previous Procedures: None (09/15/2016 00:04:Libia Duke) Current Procedures: Ultrasound; NST (09/15/2016 00:04:Libia Duke) History of Previous : No (09/15/2016 00:04:Libia Duke) History of Gestational Diabetes: No (09/15/2016 00:04:Libia Duke) History of PIH: No (09/15/2016 00:04:Libia Duke) History of Incompetent Cervix: No (09/15/2016 00:04:Libia Duke) History of Placenta Previa/Abrup: No (09/15/2016 00:04:Libia Duke) History of Macrosomia: No (09/15/2016 00:04:Libia Duke) History of IUGR: No (09/15/2016 00:04:Libia Duke) History of Hemorrhage: No (09/15/2016 00:04:Libia Duke) History of Loss/Stillborn: No (09/15/2016 00:04:Libia Duke) History of : No (09/15/2016 00:04:Libia Duke) History of D (Rh) Sensitization: No (09/15/2016 00:04:Libia Duke) History Recurrent Loss/Stillborn: No (09/15/2016 00:04:Libia Duke) History Depression/PP Depression: No (09/15/2016 00:04:Libia Duke) History of Uterine Anomaly/ALISE: No (09/15/2016 00:04:Libia Duke) History of Infertility: No (09/15/2016 00:04:Libia Duke) History of ART Treatment: No (09/15/2016 00:04:Libia Duke) History of ALISE: No (09/15/2016 00:04:Libia Duke) Comments Obstetrical History: G1-current (09/15/2016 00:04:Libia Duke) MEDICAL HISTORY Med Hx Diabetes: No (09/15/2016 00:04:Libia Duke) Med Hx Hypertension: No (09/15/2016 00:04:Libia Duke) Med Hx Heart Disease: No (09/15/2016 00:04:Libia Duke) Med Hx Autoimmune Disorder: No (09/15/2016 00:04:Libia Duke) Med Hx Kidney Disease/UTI: No (09/15/2016 00:04:Libia Duke) Med Hx Neurologic/Epilepsy: No (09/15/2016 00:04:Libia Duke) Med Hx Psychiatric Disorders: No (09/15/2016 00:04:Libia Duke) Med Hx Hepatitis/Liver Disease: No (09/15/2016 00:04:Libia Duke) Med Hx Varicosities/Phlebitis: No (09/15/2016 00:04:Libia Duke) Med Hx Thyroid Dysfunction: No (09/15/2016 00:04:Libia Duke) Med Hx Trauma/Violence: No (09/15/2016 00:04:Libia Duke) Med Hx Blood Transfusion: No (09/15/2016 00:04:Libia Duke) Med Hx Pulmonary (Asthma,TB): No (09/15/2016 00:04:Libia Duke) Med Hx Breast: No (09/15/2016 00:04:Libia Duke) Med Hx ULTRA SOUND TECHNICIAN Surgery: No (09/15/2016 00:04:Libia Duke) Med Hx Hospitalization/Surgery: Yes (Annotations: Data stored by CPN on behalf of user) (09/15/2016 00:04:Shellie Marx RN) Med Hx Anesthetic Complications: No (09/15/2016 00:04:Libia Duke) Med Hx Abnormal Pap Smear: No (09/15/2016 00:04:Libia Duke) Other Medical Diseases: No (09/15/2016 00:04:Libia Duke) Med Hx Significant Family Hx: No (09/15/2016 00:04:Libia Duke) Details of Med/Surg Hx: tooth extraction, fibroids removed from breast (09/15/2016 00:04:Shellie Marx RN) INFECTIOUS HISTORY Inf Hx Gonorrhea: No (09/15/2016 00:04:Libia Duke) Inf Hx Chlamydia: Yes (09/15/2016 00:04:Shellie Marx RN) Inf Hx Syphilis: No (09/15/2016 00:04:Libianathan Duke) Inf Hx HIV/AIDS: No (09/15/2016 00:04:Libia Duke) Inf Hx Human Papilloma Virus: No (09/15/2016 00:04:Libianathan Duke) Inf Hx Pt/Partner Genital Herpes: No (09/15/2016 00:04:Libia Duke) Inf Hx Tuberculosis/Exposure: No (09/15/2016 00:04:Libia Duke) Inf Hx Hepatitis B,C: No (09/15/2016 00:04:Libianathan Duke) Inf Hx Rash or Viral Illness: No (09/15/2016 00:04:Libia Duke) GENETIC HISTORY Gen Hx Age >=35 at FINN: No (09/15/2016 00:04:Libia Duke) Gen Hx Thalassemia: No (09/15/2016 00:04:Libia Duke) Gen Hx Congenital Heart Defect: No (09/15/2016 00:04:Libia Duke) Gen Hx Neural Tube Defect: No (09/15/2016 00:04:Libia Duke) Gen Hx Down's Syndrome: No (09/15/2016 00:04:Libia Duke) Gen Hx Kenji-Sachs: No (09/15/2016 00:04:Libia Duke) Gen Hx Yumiko: No (09/15/2016 00:04:Libia Duke) Gen Hx Familial Dysautonomia: No (09/15/2016 00:04:Libia Duke) Gen Hx Sickle Cell Disease/Trait: No (09/15/2016 00:04:Libia Duke) Gen Hx Hemophilia/Blood Disorder: No (09/15/2016 00:04:Libia Duke) Gen Hx Muscular Dystrophy: No (09/15/2016 00:04:Libia Duke) Gen Hx Cystic Fibrosis: No (09/15/2016 00:04:Libia Duke) Gen Hx Huntingtons Chorea: No (09/15/2016 00:04:Libia Duke) Gen Hx Mental Retardation/Autism: No (09/15/2016 00:04:Libia Duke) Gen Hx Tested for Fragile X: No (09/15/2016 00:04:Libia Duke) Gen Hx Other Inher/Chromosomal: No (09/15/2016 00:04:Libia Duke) Gen Hx Maternal Metabolic DO: No (09/15/2016 00:04:Libia Duke) Gen Hx Pt Father or FOB Defect: No (09/15/2016 00:04:Libia Duke) Gen Hx Other Genetic History: No (09/15/2016 00:04:Libia Duke) Gen Hx Drugs/Meds since LMP: No (09/15/2016 00:04:Libia Duke)
[2016-09-20] MEDS: IBUPROFEN 800 MG TABLET PO SCH ×2 (06:05→14:08)
--- NOTE | 2016-09-20 06:16 | L&D Care Plan ---
LD CARE PLANS Datetime Report Generated by CPN: 09/20/2016 06:15 Datetime: 09/18/2016 18:31 State: Risk For (Yuan Claire RN) Related To: Labor and Delivery Process; Complication(s) of (Yuan Claire RN) Goal(s): Patients Pain will be Assessed and Managed; Patient will Verbalize Adequate Relief of Pain or the Ability to [place] with Current Pain (Yuan Claire RN) Interventions: Assess Pain Severity on Scale of 0 (None) to 5 (Severe); Assess Type, Location and Intensity of Pain Each Time Client Reports Discomfort and Notify Provider if Unusal Pain Develops (Yaun Claire RN) Outcome: Patient will Report Absence or Relief of Pain Consistent with Established Pain Goal (Yuan Claire RN) Status: Ongoing (Yuan Claire RN) Outcome: Patient will have a Decrease in Signs and Symptoms of Discomfort (Yuan Claire RN) Status: Ongoing (Yuan Claire RN) State: Risk For (Yuan Claire RN) Related To: Labor and Delivery Process; Perceived or Actual Threat to ; Fear of Unknown (Yuan Claire RN) Goal(s): Patient will have Decreased Anxiety and be able to Function at Acceptable Levels (Yuan Claire RN) Interventions: Assess Verbal and Nonverbal Behavioral Indicators of Anxiety; Assist Patient to Identify and Verbalize Symptoms of Anxiety; Identify and Demonstrate Techniques to Control Anxiety (Yuan Claire RN) Outcome: Patient will Identify, Verbalize and Demonstrate Techniques to Control Anxiety (Yuan Claire RN) Status: Ongoing (Yuan Claire RN) Outcome: Patient's Posture, Facial Expressions, Gestures and Activity Level will Reflect Decreased Anxiety (Yuan Claire RN) Status: Ongoing (Yuna Claire RN) Outcome: Patient will Verbalize a Sense of Control and/or Acceptance of the Situation (Yuan Claire RN) Status: Ongoing (Yuan Claire RN) State: Actual (Yuan Claire RN) Related To: Labor and Delivery Process; Treatment and Procedures; Impending Alterations in Family Dynamics; Feeding and Care (Yuan Claire RN) Goal(s): Patient will Accurately Verbalize Understanding of Plan of Care and Treatment; Patient and Family will Accurately Verbalize Understanding of the Disease Process (Yuan Claire RN) Interventions: Assess Motivation and Willingness of Patient/Family to Learn; Assess Barriers to Learning: Pain, Emotional State, Language Barrier, Cognitive Impairment, Visual or Hearing Deficits; Instruct Patient and Family on Signs and Symptoms to Report (Yuan Claire RN) Outcome: Patient and Family will Verbalize Understanding of Condition, Treatment and Signs and Symptoms to Report (Yuan Claire RN) Status: Ongoing (Yuan Claire RN) Outcome: Patient will Identify Perceived Learning Needs and Express Motivation to Learn (Yuan Claire RN) Status: Ongoing (Yuan Claire RN) Outcome: Patient will Verbalize Understanding of Desired Content, and/or Performs Desired Skill Prior to Discharge (Yuan Claire RN) Status: Ongoing (Yuan Claire RN) State: Risk For (Yuan Claire RN) Related To: Prolonged Labor or Induction; Invasive Procedures; Altered Tissue Integrity (Yuan Claire RN) Goal(s): The Patient will be Free of Infection, Vital Signs Stable and Lab Work within Normal Parameters (Yuan Claire RN) Interventions: Instruct and Reinforce Proper Handwashing, Hygiene, and Care Techniques to Patient and Family; Monitor Vital Signs; Monitor Patient for the Following Signs of Infection: Fever, Abdominal Tenderness, Unusual Discharge; Monitor Aminiotic Fluid, Urine and Lochia for Color and Odor (Yuan Claire RN) Outcome: Patient will Remain Free of Infection (Yuan Claire RN) Status: Ongoing (Yuan Claire RN) Outcome: Infection will be Recognized Early to Allow for Prompt Treatment (Yuan Claire RN) Status: Ongoing (Yuan Claire RN) State: Not Applicable (Yuan Claire RN) State: Not Applicable (Yuan Claire RN) State: Risk For (Yuan Claire RN) Related To: Vaginal Delivery (Yuan Claire RN) Goal(s): Patient will Maintain Optimal Skin Integrity, Free of Breakdown, Injury or Infection (Yuan Claire RN) Interventions: Complete Screening for Pressure Ulcer Risk and Initiate Protocol per Hospital Policy; Monitor Site of Skin Impairment for Color Changes, Redness, Swelling, Warmth, Pain or Other Signs of Infection; Encourage and Assist with Position Changes (Yuan Claire RN) Outcome: Patient will not have Evidence of Injury Such as Skin Breakdown, Scrapes, Cuts, or Bruising (Yuan Claire RN) Status: Ongoing (Yuan Claire RN) Outcome: Patient will Report Any Altered Sensation or Pain at Site of Skin Impairment (Yuan Claire RN) Status: Ongoing (Yuan Claire RN) State: Not Applicable (Yuan Claire RN) State: Not Applicable (Yuan Claire RN) State: Not Applicable (Yuan Claire RN) Datetime: 09/18/2016 18:00 State: Risk For (Yuan Claire RN) Related To: Labor and Delivery Process; Complication(s) of (Yuan Claire RN) Goal(s): Patients Pain will be Assessed and Managed; Patient will Verbalize Adequate Relief of Pain or the Ability to [place] with Current Pain (Yuan Claire RN) Interventions: Assess Pain Severity on Scale of 0 (None) to 5 (Severe); Assess Type, Location and Intensity of Pain Each Time Client Reports Discomfort and Notify Provider if Unusal Pain Develops (Yuan Claire RN) Outcome: Patient will Report Absence or Relief of Pain Consistent with Established Pain Goal (Yuan Claire RN) Status: Ongoing (Yuan Claire RN) Outcome: Patient will have a Decrease in Signs and Symptoms of Discomfort (Yuan Claire RN) Status: Ongoing (Yuan Claire RN) State: Risk For (Yuan Claire RN) Related To: Labor and Delivery Process; Perceived or Actual Threat to ; Fear of Unknown (Yuan Claire RN) Goal(s): Patient will have Decreased Anxiety and be able to Function at Acceptable Levels (Yuan Claire RN) Interventions: Assess Verbal and Nonverbal Behavioral Indicators of Anxiety; Assist Patient to Identify and Verbalize Symptoms of Anxiety; Identify and Demonstrate Techniques to Control Anxiety (Yuan Claire RN) Outcome: Patient will Identify, Verbalize and Demonstrate Techniques to Control Anxiety (Yuan Claire RN) Status: Ongoing (Yuan Claire RN) Outcome: Patient's Posture, Facial Expressions, Gestures and Activity Level will Reflect Decreased Anxiety (Yuan Claire RN) Status: Ongoing (Yuan Claire RN) Outcome: Patient will Verbalize a Sense of Control and/or Acceptance of the Situation (Yuan Claire RN) Status: Ongoing (Yuan Claire RN) State: Actual (uYan Claire RN) Related To: Labor and Delivery Process; Treatment and Procedures; Impending Alterations in Family Dynamics; Feeding and Infant Care (Yuan Claire RN) Goal(s): Patient will Accurately Verbalize Understanding of Plan of Care and Treatment; Patient and Family will Accurately Verbalize Understanding of the Disease Process (Yuan Claire RN) Interventions: Assess Motivation and Willingness of Patient/Family to Learn; Assess Barriers to Learning: Pain, Emotional State, Language Barrier, Cognitive Impairment, Visual or Hearing Deficits; Instruct Patient and Family on Signs and Symptoms to Report (Yuan Claire RN) Outcome: Patient and Family will Verbalize Understanding of Condition, Treatment and Signs and Symptoms to Report (Yuan Claire RN) Status: Ongoing (Yuan Claire RN) Outcome: Patient will Identify Perceived Learning Needs and Express Motivation to Learn (Yuan Claire RN) Status: Ongoing (Yuan Claire RN) Outcome: Patient will Verbalize Understanding of Desired Content, and/or Performs Desired Skill Prior to Discharge (Yuan Claire RN) Status: Ongoing (Yuan Claire RN) State: Risk For (Yuan Claire RN) Related To: Prolonged Labor or Induction; Invasive Procedures; Altered Tissue Integrity (Yuan Claire RN) Goal(s): The Patient will be Free of Infection, Vital Signs Stable and Lab Work within Normal Parameters (Yuan Claire RN) Interventions: Instruct and Reinforce Proper Handwashing, Hygiene, and Care Techniques to Patient and Family; Monitor Vital Signs; Monitor Patient for the Following Signs of Infection: Fever, Abdominal Tenderness, Unusual Discharge; Monitor Aminiotic Fluid, Urine and Lochia for Color and Odor (Yuan Claire RN) Outcome: Patient will Remain Free of Infection (Yuan Claire RN) Status: Ongoing (Yuan Claire RN) Outcome: Infection will be Recognized Early to Allow for Prompt Treatment (Yuan Claire RN) Status: Ongoing (Yuan Claire RN) State: Not Applicable (Yuan Claire RN) State: Not Applicable (Yuan Claire RN) State: Risk For (Yuan Claire RN) Related To: Vaginal Delivery (Yuan Claire RN) Goal(s): Patient will Maintain Optimal Skin Integrity, Free of Breakdown, Injury or Infection (Yuan Claire RN) Interventions: Complete Screening for Pressure Ulcer Risk and Initiate Protocol per Hospital Policy; Monitor Site of Skin Impairment for Color Changes, Redness, Swelling, Warmth, Pain or Other Signs of Infection; Encourage and Assist with Position Changes (Yuan Claire RN) Outcome: Patient will not have Evidence of Injury Such as Skin Breakdown, Scrapes, Cuts, or Bruising (Yuan Claire RN) Status: Ongoing (Yuan Claire RN) Outcome: Patient will Report Any Altered Sensation or Pain at Site of Skin Impairment (Yuan Claire RN) Status: Ongoing (Yuan Claire RN) State: Not Applicable (Yuan Claire RN) State: Not Applicable (Yuan Claire RN) State: Not Applicable (Yuan Claire RN)
[2016-09-20] MEDS: PRENATAL VITAMIN W-O CA NO5/FE FUMARATE/FA CAPSULE PO SCH (09:15)
[2016-09-20] MEDS: DOCUSATE SODIUM 100 MG CAPSULE PO SCH ×2 (09:15→17:43)
[2016-09-20] MEDS: FERROUS SULFATE 325 MG TABLET PO SCH ×2 (09:16→17:43)
[2016-09-20] MEDS: SENNOSIDES/DOCUSATE 8.6-50 MG 1 EACH TABLET PO SCH (09:16)
--- NOTE | 2016-09-20 10:47 | PDOC PROGRESS REPORT ---
Subjective-OB Subjective: Post Delivery Day: 26 year old. Denies any needs at this time Resting in bed, no c/o, OOB to BR. voiding, diet taken well, scant bleeding, ready to go home Physical Exam (OB) Vital Signs: Temp Pulse Resp BP Pulse Ox 98.1 F 73 20 95/49 L 98 09/20/16 08:14 09/20/16 08:14 09/20/16 08:14 09/20/16 08:14 09/20/16 08:14 Intake & Output 09/19/16 09/20/16 09/21/16 06:59 06:59 07:59 Weight 70.15 kg - PIH/Pre-Eclampsia Headache: Absent Epigastric Pain: No Visual Changes: No - Lochia Lochia Amount: Small 10-25 ml Lochia Color: Serosa/Brown - Abdomen Description: Tender Hernia Present: No Fundal Description: Firm Fundal Height: u/u - u/2 Objective-Diagnostic Laboratory: 09/19/16 07:32 Assessment and Plan(PN) - Assessment and Plan (1) Vaginal delivery Is this a current diagnosis for this admission?: Yes - Time Spent with Patient Time with patient: Less than 15 minutes Medications reviewed and adjusted accordingly: Yes - Disposition Anticipated Discharge: Home Within: Other - home today
--- NOTE | 2016-09-20 10:51 | PDOC DISCHARGE SUMMARY ---
Final Diagnosis Discharge Date: 09/20/16 - Final Diagnosis (1) Vaginal delivery Is this a current diagnosis for this admission?: Yes Discharge Data - Discharge Medication Home Medications: Vit/Iron Fumarate/FA [ Tablet] 1 tab PO DAILY 09/15/16 Pnv W-O Ca No5/Fe Fumarate/FA [-U Multiple Vitamin Capsule] 1 cap PO DAILY #60 capsule 09/20/16 Gestational Age: 39.5 Reason(s) for Admission: PROM Procedures: Ultrasound Intrapartum Procedure(s): Spontaneous Vaginal Delivery Complication(s): Laceration-Perineal Laceration-Degree: 2nd - [place] Data Baby 1 Male at 1 minute: 9 at 5 minutes: 9 Weight: 3.487 kg Home with Mother: Yes Complications: No - Diagnosis Test Laboratory: Temp Pulse Resp BP Pulse Ox 98.1 F 73 20 95/49 L 98 09/20/16 08:14 09/20/16 08:14 09/20/16 08:14 09/20/16 08:14 09/20/16 08:14 09/18/16 09/18/16 09/19/16 17:17 17:40 07:32 RBC 4.41 3.58 L Hgb 13.5 11.0 L D Hct 39.1 31.7 L Urine Opiates Screen NEGATIVE - Discharge information/Instructions Discharge Activity: Activity As Tolerated Discharge Diet: As Tolerated, Regular Disposition: HOME, SELF-CARE Follow up with: [facility] in: 4, Weeks
[2016-09-20 11:15] VITALS: BP 98/52
== END 2016-09-20 19:55 | disposition home or self-care (01) | DRG 775 ==
LOC: LC 17:05 → LR 17:35 → 2N 23:05
PROVIDERS: ADMIT Obstetrics & Gynecology; ATTEND Obstetrics & Gynecology
PROC: 10E0XZZ Delivery of Products of Conception, External Approach (ICD-10-PCS; principal; 2016-09-18)
PROC: 0KQM0ZZ Repair Perineum Muscle, Open Approach (ICD-10-PCS; 2016-09-18)
PROC: 4A1HXCZ Monitoring of Products of Conception, Cardiac Rate, External Approach (ICD-10-PCS; 2016-09-18)
DX: O69.81X0 Labor and delivery complicated by cord around neck, without compression, not applicable or unspecified (principal); O70.1 Second degree perineal laceration during delivery; Z3A.39 39 weeks gestation of pregnancy; Z37.0 Single live birth
CPT/HCPCS: 36415; 80307; 81005; 85025; 85027; 86592; 86850; 86900; 86901; 87491; 87591; 94760; J2590; J3490

== ENCOUNTER 2019-03-26 14:33 | Inpatient (IN) | payer MEDICAID ==
[2019-03-26 15:52] LABS: APPEARANCE,URINE CLEAR; BILIRUBIN,URINE NEGATIVE (NEGATIVE); COLOR,URINE YELLOW; GLUCOSE, URINE NEGATIVE (NEGATIVE); KETONES,URINE NEGATIVE (NEGATIVE); LEUKOCYTE ESTERASE,URINE MODERATE (NEGATIVE); NITRITE,URINE NEGATIVE (NEGATIVE); PROTEIN,URINE NEGATIVE (NEGATIVE); URINE SPECIFIC GRAVITY 1.005; UROBILINOGEN,URINE NEGATIVE mg/dL (<2.0)
[2019-03-26 16:10] LABS: URINE AMPHETAMINES SCREEN NEGATIVE; URINE BARBITURATES SCREEN NEGATIVE; URINE BENZODIAZEPINES SCREEN NEGATIVE; URINE COCAINE SCREEN NEGATIVE; URINE MARIJUANA (THC) SCREEN NEGATIVE; URINE METHADONE SCREEN NEGATIVE; URINE PHENCYCLIDINE SCREEN NEGATIVE
--- NOTE | 2019-03-26 16:20 | Admission Physical ---
Datetime Report Generated by CPN: 03/26/2019 16:20 CURRENT ADMISSION Chief Complaint: Suspected Ruptured Membranes Chief Complaint Other: Pt states she's been leaking for 4 days, wet panties. Didn't know she was ruptured. Indication for Induction: Not Applicable Admit Impression : Term, Intrauterine ; Ruptured Membranes Admit Plan: Admit to Unit; Initiate Labor Protocol ALLERGIES Medication Allergies: No Medication Allergies: No Known Drug Allergies (03/26/2019) Latex: No Latex Allergies OBSTETRICAL HISTORY EDC: 04/05/2019 00:00 : 2 Para: 1 Term: 1 : 0 SAB: 0 IAB: 0 Livin SEE RECORDS Alcohol: No Marijuana : No Cocaine: No Other Illicit Drugs: No PHYSICAL EXAM General: Normal HEENT: Normal Neurologic: Normal Heart: Normal Lungs: Normal Abdomen: Normal Genitourinary Exam: Normal Extremities: Normal Pelvic Type: Adequate Vital Signs: Reviewed; Within Normal Limits VAGINAL EXAM Dilatation: 4 Effacement: 80 Station: -2 Contraction Comments: 3-4 min MEMBRANES Membranes: Ruptured FETUS A EGA: 38.4 Monitoring: External US FHR- Baseline: 135 Variability: Moderate 6-25bpm Accelerations: 15X15 Decelerations: None Presentation: Vertex INFORMED CONSENT Signature: with User ID: [email or web address]
[2019-03-26 16:25] LABS: ABSOLUTE LYMPHOCYTES (AUTO) 1.4 10^3/uL (0.5-4.7); ABSOLUTE MONOCYTES (AUTO) 0.7 10^3/uL (0.1-1.4); ABSOLUTE NEUT (AUTO) 6.4 10^3/uL (1.7-8.2); BASOPHILS % (AUTO) 0.2 % (0-2); EOSINOPHILS % (AUTO) 0.5 % (0-6); HEMATOCRIT 35.5 % (36.0-47.0); HEMOGLOBIN 12.1 g/dL (12.0-15.5); LYMPHOCYTES % (AUTO) 16.6 % (13-45); MEAN CORPUSCULAR HEMOGLOBIN 28.9 pg (27.0-33.4); MEAN CORPUSCULAR HGB CONC 34.2 g/dL (32.0-36.0); MEAN CORPUSCULAR VOLUME 85 fl (80-97); MONOCYTES % (AUTO) 8.1 % (3-13); PLATELET COUNT 199 10^3/uL (150-450); RED BLOOD COUNT 4.19 10^6/uL (3.72-5.28); RED CELL DISTRIBUTION WIDTH 16.7 % (11.5-14.0); SEGMENTED NEUTROPHILS % (AUTO) 74.6 % (42-78); TOTAL CELLS COUNTED % (AUTO) 100 %; WHITE BLOOD COUNT 8.6 10^3/uL (4.0-10.5)
[2019-03-26] MEDS ORDERED: OXYTOCIN 10 UNIT/ML VIAL ONE (17:15)
[2019-03-26] MEDS ORDERED: MISOPROSTOL 0.2 MG TABLET ONE (17:15)
[2019-03-26] MEDS ORDERED: LIDOCAINE 1% INJ-PF (10 MG/ML) 30 ML SDV ONE (17:15)
[2019-03-26] MEDS ORDERED: OXYTOCIN/NORMAL SALINE 20 UNIT/1,000 ML RTUINJ ONE (17:16)
[2019-03-26] MEDS ORDERED: OXYTOCIN/NORMAL SALINE 20 UNIT/1,000 ML RTUINJ IV PRN ×2 (18:08→22:25)
[2019-03-26] MEDS ORDERED: RINGERS SOLUTION,LACTATED 1,000 ML IV PRN (18:12)
[2019-03-26] MEDS ORDERED: IBUPROFEN 800 MG TABLET ONE (20:57)
[2019-03-26] MEDS ORDERED: ACETAMINOPHEN WITH CODEINE #3 TABLET ONE (20:57)
--- NOTE | 2019-03-26 22:24 | Warning Signs in Babies ---
VOD Warning Signs Datetime Report Generated by [facility]: 03/26/2019 22:24 VOD#608 -Warning Signs in Babies: Needs to be viewed. (03/26/2019 14:37:Ana Greenfield RN)
[2019-03-26] MEDS ORDERED: DIBUCAINE 1% OINTMENT 56 GM TP PRN (22:25)
[2019-03-26] MEDS ORDERED: MEASLES,MUMPS&RUBELLA VACC/PF 0.5 ML VIAL SUBCUT PRN (22:25)
[2019-03-26] MEDS ORDERED: ZOLPIDEM TARTRATE 5 MG TABLET PO PRN (22:25)
[2019-03-26] MEDS ORDERED: BENZOCAINE/MENTHOL AEROSOL SPRAY 56 ML TOP PRN (22:25)
[2019-03-26] MEDS ORDERED: ACETAMINOPHEN WITH CODEINE #3 TABLET PO PRN (22:25)
[2019-03-26] MEDS ORDERED: DIPH/PERTUSS(ACELL)/TETANUS VAC/PF 0.5 ML SYR (>=10YO) IM PRN (22:25)
[2019-03-26] MEDS ORDERED: ONDANSETRON HCL 8 MG TABLET PO PRN (22:27)
[2019-03-26] MEDS ORDERED: DIPHENHYDRAMINE HCL 25 MG CAPSULE PO PRN (22:28)
[2019-03-26] MEDS ORDERED: FAMOTIDINE 20 MG TABLET PO PRN (22:28)
[2019-03-26] MEDS ORDERED: IBUPROFEN 800 MG TABLET PO ONE (23:15)
[2019-03-27] MEDS: IBUPROFEN 800 MG TABLET PO SCH ×3 (06:16→21:07)
[2019-03-27 06:51] LABS: HEMATOCRIT 30.3 % (36.0-47.0); HEMOGLOBIN 10.5 g/dL (12.0-15.5); MEAN CORPUSCULAR HEMOGLOBIN 29.3 pg (27.0-33.4); MEAN CORPUSCULAR HGB CONC 34.5 g/dL (32.0-36.0); MEAN CORPUSCULAR VOLUME 85 fl (80-97); PLATELET COUNT 170 10^3/uL (150-450); RED BLOOD COUNT 3.58 10^6/uL (3.72-5.28); RED CELL DISTRIBUTION WIDTH 16.5 % (11.5-14.0); WHITE BLOOD COUNT 9.8 10^3/uL (4.0-10.5)
[2019-03-27] MEDS: SENNOSIDES/DOCUSATE 8.6-50 MG 1 EACH TABLET PO SCH (10:52)
[2019-03-27] MEDS: FERROUS SULFATE 325 MG TABLET PO SCH ×2 (10:52→18:11)
[2019-03-27] MEDS: DOCUSATE SODIUM 100 MG CAPSULE PO SCH ×2 (10:52→18:11)
[2019-03-27] MEDS: PRENATAL VITAMIN W DHA CAPSULE PO SCH (10:52)
--- NOTE | 2019-03-27 13:20 | PDOC PROGRESS REPORT ---
Subjective-OB Progress Note for:: 03/27/19 Subjective: reports bleeding slowing, pain controlled with current meds, denies needs Physical Exam (OB) Vital Signs: Temp Pulse Resp BP Pulse Ox 97.9 F 75 20 91/53 L 100 03/27/19 08:24 03/27/19 08:27 03/27/19 08:24 03/27/19 08:27 03/27/19 08:24 Intake & Output 03/26/19 03/27/19 03/28/19 06:59 06:59 06:59 Weight 72.5 kg - Abdomen Description: Soft, Round Hernia Present: No Fundal Description: Firm, Midline Fundal Height: u/u - u/2 - Abdominal Distension: No distension Tenderness: Nontender - Extremities Lower extremities: Aditi's sign - neg Calf: Normal, Nontender Objective-Diagnostic Laboratory: 03/27/19 06:33 03/26/19 03/26/19 03/26/19 14:59 16:00 16:00 WBC 8.6 RBC 4.19 Hgb 12.1 Hct 35.5 L MCV 85 MCH 28.9 MCHC 34.2 RDW 16.7 H Plt Count 199 Seg Neutrophils % 74.6 Urine Color YELLOW Urine Appearance CLEAR Urine pH 7.0 Ur Specific [place] 1.005 Urine Protein NEGATIVE Urine Glucose (UA) NEGATIVE Urine Ketones NEGATIVE Urine Blood LARGE H Urine Nitrite NEGATIVE Ur Leukocyte Esterase MODERATE H Blood Type AB POSITIVE Antibody Screen NEGATIVE 03/27/19 06:33 WBC 9.8 RBC 3.58 L Hgb 10.5 L Hct 30.3 L MCV 85 MCH 29.3 MCHC 34.5 RDW 16.5 H Plt Count 170 Seg Neutrophils % Urine Color Urine Appearance Urine pH Ur Specific [place] Urine Protein Urine Glucose (UA) Urine Ketones Urine Blood Urine Nitrite Ur Leukocyte Esterase Blood Type Antibody Screen Assessment and Plan(PN) - Assessment and Plan (1) SROM (spontaneous rupture of membranes) Is this a current diagnosis for this admission?: Yes (2) Vaginal delivery Is this a current diagnosis for this admission?: Yes - Time Spent with Patient Time with patient: Less than 15 minutes Medications reviewed and adjusted accordingly: Yes - Disposition Anticipated Discharge: Home Within: within 24 hours
[2019-03-28] MEDS: IBUPROFEN 800 MG TABLET PO SCH ×2 (06:37→13:31)
--- NOTE | 2019-03-28 08:22 | Delivery Summary ---
Del Sum A-C Datetime Report Generated by CPN: 03/28/2019 08:21 DELIVERY PERSONNEL DELIVERY PERSONNEL: [id number] Delivery Doctor:: Demetris Lawler MD Labor and Delivery Nurse:: Ana Greenfield RN MATERNAL INFORMATION Delivery Anesthesia: None Medications After Delivery: Pitocin Bolus-Please Comment Meds After Delivery Comment: piotcin 20 units in 1000 ml NSS blous Delivery QBL: 200 Maternal Complications: Other Other Maternal Complications: Prolonged ROM Complication Details: prolonged rupture of membranes Provider Comments: Pt C_P. Head delivered KARISSA. Ant _ post shoulder delivered followed by rest of body. Baby placed on mom's abdomen. Cord clamped x 2 and cut. Cord blood collected. Placenta delivered intact with 3VC. Lac repaired as above. LABOR SUMMARY EDC: 04/05/2019 00:00 No. Babies in Womb: 1 Attempted: No Labor Anesthesia: IV Sedation LABOR INFORMATION Reason for Induction: Not Applicable Onset of Labor: 03/26/2019 08:00 Complete Dilatation: 03/26/2019 20:13 Oxytocin: Augmentation Group B Beta Strep: neg Steroids Given: None Reason Steroids Not Administered: Not Applicable MEMBRANES Membranes Rupture Method: Spontaneous Rupture of Membranes: 03/23/2019 10:00 Length of Rupture (hr): 82.42 Amniotic Fluid Color: Clear Amniotic Fluid Amount: Small Amniotic Fluid Odor: Normal STAGES OF LABOR Stage 1 hr: 12 Stage 1 min: 13 Stage 2 hr: 0 Stage 2 min: 12 Stage 3 hr: 0 Stage 3 min: 6 Total Time in Labor hr: 12 Total Time in Labor min: 31 VAGINAL DELIVERY Episiotomy: Median Laceration #1: Perineal Laceration Extension #1: Second Degree Laceration Repair: Yes Laceration Repair Note: Repaired with 2.0 and 3. 0 Vicryl Sponge Count Correct: N/A Sharps Count Correct: N/A BABY A INFORMATION Delivery Date/Time: 03/26/2019 20:25 Method of Delivery: Vaginal Method of Delivery: Vaginal Born in Route : No : N/A Forceps: N/A Vacuum Extraction: N/A Shoulder Dystocia : No PRESENTATION/POSITION BABY A Presentation: Cephalic Cephalic Presentation: Vertex Vertex Position: Left Occipital Anterior Breech Presentation: N/A PLACENTA INFORMATION BABY A Placenta Delivery Time : 03/26/2019 20:31 Placenta Method of Delivery: Spontaneous Placenta Status: Delivered SCORES BABY A Heart Rate 1 min: >100 bpm Resp Effort 1 min: Good Cry Reflex Irritability 1 min: Cough or Sneeze or Pulls Away Muscle Tone 1 min: Active Motion Color 1 min: Blue/Pale Resuscitation Effort 1 min: Tactile Stimulation SCORE 1 MIN: 8 Heart Rate 5 min: >100 bpm Resp Effort 5 min: Good Cry Reflex Irritability 5 min: Cough or Sneeze or Pulls Away Muscle Tone 5 min: Active Motion Color 5 min: Body [place], Extremities Blue Resuscitation Effort 5 min: Tactile Stimulation SCORE 5 MIN: 9 INFORMATION BABY A Gestational Age at Delivery: 38.4 Gestational Status: Early Term- 37- 38.6 Weeks Infant Outcome : Liveborn Infant Condition : Stable Sex: Male Sex: Male IDENTIFICATION BABY A Infant Verification Date/Time: 03/26/2019 22:10 ID Band Number: [id number] Mother's Name Verified: Yes Infant RN Verifying Infant: Dash Greenfield Rn Additional Verifying Personnel: Alejandra Martini RN CORD INFORMATION BABY A No. Cord Vessels: 3 Nuchal Cord : N/A Nuchal Cord- Other: compound hand, Cord Blood Taken: Yes-For Eval (Mom's Blood Type - or O+) Suction: None; Mouth ASSESSMENT BABY A Skin to Skin: Yes BABY B INFORMATION : N/A SIGNATURES Signature: with User ID: [email or web address]
[2019-03-28 08:38] VITALS: BP 97/52
--- NOTE | 2019-03-28 10:08 | PDOC DISCHARGE SUMMARY ---
Final Diagnosis Discharge Date: 03/28/19 - Final Diagnosis (1) SROM (spontaneous rupture of membranes) Is this a current diagnosis for this admission?: Yes (2) Vaginal delivery Is this a current diagnosis for this admission?: Yes Discharge Data - Discharge Medication Home Medications: Vitamin [-U Multiple Vitamin Capsule] 1 cap PO DAILY #60 capsule 09/20/16 Reason(s) for Admission: Onset of Labor Procedures: NST Intrapartum Procedure(s): Spontaneous Vaginal Delivery Complication(s): Laceration-Perineal Laceration-Degree: 2nd - Diagnosis Test Laboratory: Temp Pulse Resp BP Pulse Ox 98.2 F 75 12 97/52 L 99 03/28/19 08:37 03/28/19 08:37 03/28/19 08:37 03/28/19 08:37 03/28/19 08:37 03/26/19 03/26/19 03/27/19 14:59 16:00 06:33 RBC 4.19 3.58 L Hgb 12.1 10.5 L Hct 35.5 L 30.3 L Urine Opiates Screen NEGATIVE - Discharge information/Instructions Discharge Activity: Balance Activity w/Rest, Pelvic Rest Discharge Diet: Regular Disposition: HOME, SELF-CARE Follow up with: [facility] in: 4, Weeks
[2019-03-28] MEDS: FERROUS SULFATE 325 MG TABLET PO SCH (10:23)
[2019-03-28] MEDS: PRENATAL VITAMIN W DHA CAPSULE PO SCH (10:23)
[2019-03-28] MEDS: DOCUSATE SODIUM 100 MG CAPSULE PO SCH (10:24)
[2019-03-28] MEDS: SENNOSIDES/DOCUSATE 8.6-50 MG 1 EACH TABLET PO SCH (10:24)
== END 2019-03-28 16:20 | disposition home or self-care (01) | DRG 807 ==
LOC: LC 14:33 → LR 15:48 → 2S 23:00
PROVIDERS: ADMIT Obstetrics & Gynecology; ATTEND Obstetrics & Gynecology
PROC: 10E0XZZ Delivery of Products of Conception, External Approach (ICD-10-PCS; principal; 2019-03-26)
PROC: 0KQM0ZZ Repair Perineum Muscle, Open Approach (ICD-10-PCS; 2019-03-26)
DX: O42.12 Full-term premature rupture of membranes, onset of labor more than 24 hours following rupture (principal); Z37.0 Single live birth; O70.1 Second degree perineal laceration during delivery; O32.6XX0 Maternal care for compound presentation, not applicable or unspecified; Z3A.38 38 weeks gestation of pregnancy
CPT/HCPCS: 36415; 59025; 80307; 81005; 84112; 85025; 85027; 86592; 86850; 86900; 86901; J2590; J3490